=== PATIENT | female | born 1980 | race Caucasian/White ===

== ENCOUNTER 2020-11-04 15:53 | Outpatient (CLI) | payer OTHER, SELFPAY ==
--- NOTE | 2020-11-04 11:07 | DI.RAD_ITS ---
EXAM: XR KNEE LT 4V AP,LAT,JOSE DANIEL,PAT CLINICAL HISTORY: INJURY LT KNEE S80.912A,. TECHNIQUE: 2D digital imaging was performed. COMPARISON: No exams were available for comparison FINDINGS: BONES: No acute fracture is present. No bony destructive lesion is seen. JOINTS: The knee is normally aligned. Small joint effusion is present. SOFT TISSUE: Normal. IMPRESSION: No acute fracture or dislocation. Small joint effusion. If there is concern for internal derangemen t, an MRI should be considered for further evaluation. DATA REPOSITORY: RADIATION DOSE DELIVERED:
== END 2020-11-04 16:13 ==
PROVIDERS: Visit Provider Physician Assistant Medical
DX: M25.462 Effusion, left knee (principal); S89.82XA Other specified injuries of left lower leg, initial encounter
CPT/HCPCS: 73564

== ENCOUNTER 2021-01-28 13:41 | Outpatient (REF) | payer OTHER, SELFPAY ==
--- NOTE | 2021-01-28 13:15 | PAPFT_PTH ---
PATIENT: Dee Montgomery LOC: [facility] U#:[id number] AGE/SX: 40/F ROOM: RE01/28/[address]: Nayana Joiner : 1980 BED: DIS: 01/28/2021 SPEC #: [id number] RECD: 01/28/21 18:02 STATUS: BRIDGET HUNT #: [id number] GREGORY: 01/28/21 13:[address]: Nayana Joiner [facility]ology RECD BY: Anastasia Vivar Tissues: 1 - CX/ENDOCX FOR PAP SMEARS Procedures: PAP THIN PREP/UVM Screening HPV DNA PROBE Comments: [id number]
== END 2021-01-28 13:42 | disposition home or self-care (01) ==
LOC: NCHCN 13:41
PROVIDERS: Visit Provider Nurse Practitioner Family
DX: Z00.00 Encounter for general adult medical examination without abnormal findings (principal); Z12.4 Encounter for screening for malignant neoplasm of cervix; Z11.51 Encounter for screening for human papillomavirus (HPV)
CPT/HCPCS: 88142; 87624

== ENCOUNTER 2021-07-09 09:36 | Emergency (ER) | payer OTHER, SELFPAY ==
[2021-07-09] VITALS (47 sets, daily range): BP systolic 99–118; BP diastolic 61–75; PULSE 66–94; RESP 11–47; TEMP 36.6–36.8; O2SAT 97–100
--- NOTE | 2021-07-09 09:30 | RT.EKG_ITS ---
APPROVED REPORT Exam: Resting ECG Reason for Exam: sob,rapid heart rate Patient Location: E HR:79 bpm ECG Measurements Heart Rate 79 AXIS VA 126 P 58 QRSd 82 QRS 72 QT 335 T 45 QTc 383 Conclusion Sinus rhythm...normal P axis, V-rate 60- 99
--- NOTE | 2021-07-09 10:09 | ED.GENADUL_ITS ---
Discharge Plan Disposition Patient Disposition: HOME Condition: Stable Discharge Details Clinical Impression: SVT (supraventricular tachycardia) Primary Care Provider: Unknown,Unknown ED Provider: Nelson Arciniega Home Meds and New Rx's Prescriptions: Continued Stelara 90 mg/mL Syringe 90 mg SUBCUT RF: 0 Discharge Instructions Instructions: Supraventricular Tachycardia (ED) Additional Instructions: Work-up in the ER revealed that you occasionally went into SVT for short period of time. Work-up was otherwise unremarkable. Covid test is pending, we should quarantine until this test has come back negative, likely in the next 1-3 days. Wear Holter monitor as directed and follow the instructions given to you by respiratory therapy. Please contact your primary care provider to discuss your ER visit, ongoing symptoms, and need for outpatient reevaluation. I have also placed you on the cardiology list to help expedite outpatient care with our cardiology team for your SVT, I do recommend contacting your office in the next 48 hours to discuss your ER visit and set up outpatient reevaluation. Please watch for new or worsening symptoms and return to the ER for any concerns. Referrals: Skye Hilliard MD [ [facility] STAFF PHYSICIAN] - Discharge Data Discharge Date/Time-TO BE ENTERED AT DEPARTURE: 07/09/21 14:48 Medical Decision Making This is a 41-year-old female, past medical history of Crohn's disease, presenting to the ER for 3-4-day history of feeling like her heart is going fast, when this happened she feels lightheaded-dizzy but not like the room is spinning, and shortness of breath. She states that her daughter has a cold and is being tested for Covid, results are pending. Patient denies recent travel, fever, true chest pain, cough, abdominal pain, nausea, vomiting, pain or swelling or leg, she is not a smoker. Clinically she appears well, nontoxic, hemodynamically stable, pulse of 83, respirations 16, temp 36.6, O2 sat 100% on room air. She has no cardiac or pulmonary history. Given her presentation would like to initiate a cardiac work-up although low suspicion for ACS, plan, residential monitor, obtain a D-dimer, thyroid studies, and will reassess. Initial laboratory values do not reveal any obvious leukocytosis, minimal anemia, platelet count 282, sodium 142 potassium 4.3 creatinine 0.8 with a GFR greater than 60, magnesium 2.1 <0.05,tsh1.26, D-dimer negative at 368, will not pursue CTA of the chest. Covid pending. Chest x-ray is unremarkable. Patient was on the monitor for the first hour and a half of her ER visit and there is no evidence of any type of arrhythmia however then a brief. Of a few seconds of SVT were witnessed, this resulted spontaneously. Discussed the monitor findings, will place a request for a Holter monitor 48 hours, and refer her to cardiology, placing her on the cardiology list. Patient is agreeable to awaiting a repeat troponin and EKG. Repeat EKG performed at 1319, please see official report by Dr. Collado. Sinus rhythm, ventricular rate of 68, no STEMI. No arrhythmia Repeat troponin less than 0.05. Patient remains hemodynamically stable. Laboratory values are unremarkable for obvious emergent process, brief SVT noted on the monitor. Symptoms are likely secondary to her SVT. Discussed work-up and findings with patient in length, answered questions to the best of my ability. At this time she is comfortable discharge, Holter monitor has been placed, and she will contact the cardiology clinic tomorrow to help expedite outpatient follow-up. Strict discharge return precautions provided. This documentation was generated using [employer] dictation system, please disregard any oddities of phrase or misspellings. Medical Records Medical records reviewed: Yes I reviewed the patient's medical records. Imaging Data Radiologic Study: Attestation: I personally reviewed and interpreted this imaging study as follows: Imaging: X-Ray Radiologist's impression: Exam(s) XR PORTABLE CHEST AP EXAM: XR PORTABLE CHEST AP CLINICAL HISTORY: sob TECHNIQUE: 2D digital imaging was performed of the chest. Two images were obtained. An AP view was obtained. COMPARISON: No exams were available for comparison FINDINGS: MEDIASTINUM: Normal. HEART: Normal. PULMONARY VASCULATURE: Normal. LUNGS: Clear. PLEURAL SPACE: No pleural effusion or pneumothorax. BONE:Within normal limits for the patient's age. OTHER FINDINGS:Normal. IMPRESSION: No acute pulmonary findings. Lab Data Lab results reviewed: Yes I reviewed the patient's lab results. Labs: Laboratory Tests Range/Units 07/09/21 07/09/21 07/09/21 10:15 10:15 10:15 WBC (4.4-10.8) 10^3/uL RBC (3.93-5.22) 10^6/uL Hgb (11.2-15.7) g/dL Hct (36.0-46.0) % MCV (80-95) fL MCH (27.0-33.0) pg MCHC (32.0-36.0) % RDW (11.7-14.6) % Plt Count (130-400) 10^3/uL MPV (8.0-11.0) fL Immature Gran % Neutrophils % Lymphocytes % Monocytes % Eosinophils % Basophils % Nucleated RBC % % Absolute Neutrophils (1.2-6.7) 10^3/uL Absolute Lymphocytes (1.2-3.4) 10^3/uL Absolute Monocytes (0.1-0.8) 10^3/uL Absolute Eosinophils (0.0-0.7) 10^3/uL Absolute Basophils (0.0-0.2) 10^3/uL PT (9.3-11.0) sec 9.9 INR (0.9-1.1) 1.0 APTT (21.0-27.5) sec 22.4 D-Dimer (<500) ng/mlFEU 368 Sodium (136-145) mmol/L 142 Potassium (3.5-5.1) mmol/L 4.3 Chloride (98-107) mmol/L 109 H Carbon Dioxide (21.0-32.0) mmol/L 29.5 Anion Gap (3-11) mmol/L 3.5 BUN (7-18) mg/dL 10 Creatinine (0.55-1.02) mg/dL 0.8 Estimated GFR/1.73 m2 (mL/min/1.73m2) >= 60.00 Glucose (74-106) mg/dL 98 Calcium (8.5-10.1) mg/dL 9.0 Magnesium (1.8-2.4) mg/dL 2.1 Total Bilirubin (0.2-1.0) mg/dL 0.4 AST (15-37) U/L 16 ALT (14-59) U/L 22 Alkaline Phosphatase (46-116) U/L 46 Troponin I (<0.06) ng/mL < 0.05 Total Protein (6.4-8.2) g/dL 6.8 Albumin (3.4-5.0) g/dL 3.5 TSH (0.36-3.74) uIU/mL 1.26 Range/Units 07/09/21 07/09/21 10:15 13:35 WBC (4.4-10.8) 10^3/uL 5.84 RBC (3.93-5.22) 10^6/uL 3.84 L Hgb (11.2-15.7) g/dL 11.1 L Hct (36.0-46.0) % 34.6 L MCV (80-95) fL 90.1 MCH (27.0-33.0) pg 28.9 MCHC (32.0-36.0) % 32.1 RDW (11.7-14.6) % 14.1 Plt Count (130-400) 10^3/uL 282 MPV (8.0-11.0) fL 10.0 Immature Gran % 0.2 Neutrophils % 62.9 Lymphocytes % 27.9 Monocytes % 6.2 Eosinophils % 2.1 Basophils % 0.7 Nucleated RBC % % 0 Absolute Neutrophils (1.2-6.7) 10^3/uL 3.68 Absolute Lymphocytes (1.2-3.4) 10^3/uL 1.63 Absolute Monocytes (0.1-0.8) 10^3/uL 0.36 Absolute Eosinophils (0.0-0.7) 10^3/uL 0.12 Absolute Basophils (0.0-0.2) 10^3/uL 0.04 PT (9.3-11.0) sec INR (0.9-1.1) APTT (21.0-27.5) sec D-Dimer (<500) ng/mlFEU Sodium (136-145) mmol/L Potassium (3.5-5.1) mmol/L Chloride (98-107) mmol/L Carbon Dioxide (21.0-32.0) mmol/L Anion Gap (3-11) mmol/L BUN (7-18) mg/dL Creatinine (0.55-1.02) mg/dL Estimated GFR/1.73 m2 (mL/min/1.73m2) Glucose (74-106) mg/dL Calcium (8.5-10.1) mg/dL Magnesium (1.8-2.4) mg/dL Total Bilirubin (0.2-1.0) mg/dL AST (15-37) U/L ALT (14-59) U/L Alkaline Phosphatase (46-116) U/L Troponin I (<0.06) ng/mL < 0.05 Total Protein (6.4-8.2) g/dL Albumin (3.4-5.0) g/dL TSH (0.36-3.74) uIU/mL ECG Data Attestation: I personally reviewed and interpreted this ECG (s) as follows: Interpretation: Please see official report by Dr. Collado. Sinus rhythm, ventri cular rate of 79. No STEMI. HPI General Mode of arrival: ambulatory . Date/Time Provider Initiated Documentation: 07/09/21 09:39 . Limitations to Documentation: no limitations . Information obtained by: patient . HPI Narrative: This is a 41-year-old female, past medical history of Crohn's disease, presenting to the ER for 3-day history of feeling short of breath, fast and irregular heart rate, dizzy like she could pass out. She denies feeling like the room is spinning. Patient states that her symptoms have been fairly steady for the past 3 days. Nothing really makes them worse or better. She denies recent travel. She states that her daughter has a URI and is currently being tested for Covid. Patient denies fever, headache, visual changes, neck pain, chest pain, cough, abdominal pain, nausea, vomiting, pain or swelling in her legs, change with bowel or bladder function. She has not taken any [id number]-[id number] medications for her symptoms. Patient denies history of smoking. Related Data Home Medications Medication Instructions Recorded Confirmed Stelara 90 mg SUBCUT 07/09/21 Allergies Allergy/AdvReac Type Severity Reaction Status Date / Time No Known Allergies Allergy Unverified 07/09/21 09:53 General Stated Complaint: GenMedical EDMOND: 3 Review of Systems Constitutional Constitutional: Denies fatigue, Denies fever(s) and Denies headache(s) Eyes Eyes: Denies change in vision ENT Ears, Nose, Mouth, and Throat: Reports dizziness, Denies headache(s) and Denies neck pain Cardiovascular Cardiovascular: Denies chest pain and Reports dyspnea Respiratory Respiratory: Denies cough and Reports dyspnea Gastrointestinal Gastrointestinal: Denies abdominal pain, Denies nausea and Denies vomiting Genitourinary Genitourinary: Denies dysuria Musculoskeletal Musculoskeletal: Denies back pain, Denies neck pain, Denies numbness and Denies tingling Integumentary/Breasts Skin/Breast: Denies rash Neurologic Neurologic: Reports dizziness, Denies headache(s), Denies numbness and Denies tingling Endocrine Endocrine: Denies fatigue FOR[facility]LY [facility] Social History Smoking/Tobacco Use Status: Never Smoking risk assessment performed?: Yes Substance use type: does not use Exam Const General: cooperative, healthy appearing, comfortable and no acute distress Orientation: alert and awake HENMT Head: normal to inspection, normocephalic and atraumatic General nose exam: external nose normal Face and sinus: normal facial exam Mouth: moist mucous membranes Throat: posterior oropharynx normal Eyes General: appearance normal, both eyes and all related structures Conjunctivae: conjunctivae normal Neck Neck: normal visual inspection, full ROM, trachea midline and supple Resp Effort & Inspection: normal respiratory effort and able to speak in complete sentences Auscultation: clear to auscultation bilaterally Cardio Rate: regular rate Rhythm: regular rhythm GI Inspection: normal to inspection Palpation: soft, not firm, no guarding, no pulsatile masses and nontender Back/Spine/Pelvis Back: no CVA tenderness and No back tenderness Skin General skin exam: no rashes or lesions noted Neuro General: patient alert, patient awake, patient oriented x3, moves all extremities and no focal motor deficits Cognition: normal cognition Speech: speech normal Gait: normal gait Motor: muscle tone normal throughout Sensory Exam: no sensory deficits noted Extrem General: normal to inspection, full ROM, capillary refill normal, no pedal edema and no calf tenderness Psych Appearance: grossly normal Mental Status: mental status grossly normal Course Vital Signs Vital signs: Vital Signs Temperature 36.6 C 07/09/21 09:47 Pulse 83 07/09/21 09:47 Respiratory Rate 16 07/09/21 09:47 Blood Pressure 108/68 07/09/21 09:47 Pulse Oximetry 100 07/09/21 09:47 Temperature 36.6 C 07/09/21 09:47 Temperature Source Skin 07/09/21 09:47 Pulse 83 07/09/21 09:47 Respiratory Rate 21 10/06/21 09:55 Respiratory Effort 07/09/21 09:55 Respiratory Depth Normal 07/09/21 09:55 Respiratory Pattern Normal 07/09/21 09:55 Blood Pressure 108/68 07/09/21 09:47 Blood Pressure Position Sitting 07/09/21 09:47 Pulse Oximetry 100 07/09/21 09:47 Oxygen Delivery Method Room Air 07/09/21 09:47 Oxygen Flow Rate 0 07/09/21 09:47 Pain Level 0 07/09/21 09:47 PAWSS Have you Been Recently Intoxicated or Drunk Within the Last 30 days?: No Have you Ever Experienced Previous Episodes of Alcohol Withdrawal?: No Have you ever Experienced Withdrawal Seizures?: No Have you ever Experienced Delirium Tremens(DT)s?: No Have you ever undergone Alcohol Rehabilitation Treatment (i.e, inpt ot outpatient treatment programs)?: No Have you ever Experienced Blackouts?: No Have you ever Combined Alcohol with other Downers within the last 90 days?: No Have you ever Combined Alcohol with any other Substance of Abuse during the last 90 days?: No Positive Blood Alcohol level on Presentation? [PCS.BAL]: No Evidence of Increased Autonomic Activity (i.e. HR>120, tremor, sweating, agitation, nausea)?: No Result: 0
[2021-07-09 10:26] LABS: Abs Immature Grans 0.01 10^3/uL (0.0-0.06); Absolute Basophil Count 0.04 10^3/uL (0.0-0.2); Absolute Eosinophil Count 0.12 10^3/uL (0.0-0.7); Absolute Lymphocyte Count 1.63 10^3/uL (1.2-3.4); Absolute Monocyte Count 0.36 10^3/uL (0.1-0.8); Absolute Neutrophil Count 3.68 10^3/uL (1.2-6.7); Basophils % 0.7; Eosinophils % 2.1; HCT 34.6 % (36.0-46.0); HGB 11.1 g/dL (11.2-15.7); Immature Grans % 0.2; Lymphocytes % 27.9; MCH 28.9 pg (27.0-33.0); MCHC 32.1 % (32.0-36.0); MCV 90.1 fL (80-95); Monocytes % 6.2; Neutrophils % 62.9; Nucleated RBC 0 %; Platelet Count 282 10^3/uL (130-400); RBC 3.84 10^6/uL (3.93-5.22); RDW 14.1 % (11.7-14.6); RDW-SD 46.5 fL; WBC 5.84 10^3/uL (4.4-10.8)
[2021-07-09 10:41] LABS: PTT Activated 22.4 sec (21.0-27.5); Prothrombin Time 9.9 sec (9.3-11.0)
[2021-07-09 10:46] LABS: ALT 22 U/L (14-59); AST 16 U/L (15-37); Albumin 3.5 g/dL (3.4-5.0); Alkaline Phosphatase 46 U/L (46-116); Anion Gap 3.5 mmol/L (3-11); BUN 10 mg/dL (7-18); Bilirubin, Total 0.4 mg/dL (0.2-1.0); CO2 29.5 mmol/L (21.0-32.0); CREATININE 0.8 mg/dL (0.55-1.02); Chloride 109 mmol/L (98-107); Glucose 98 mg/dL (74-106); Magnesium 2.1 mg/dL (1.8-2.4); Potassium 4.3 mmol/L (3.5-5.1); Sodium 142 mmol/L (136-145); Total Protein 6.8 g/dL (6.4-8.2); Troponin I < 0.05 ng/mL (<0.06)
[2021-07-09 10:49] LABS: TSH (W/Ref FT4) 1.26 uIU/mL (0.36-3.74)
--- NOTE | 2021-07-09 11:00 | DI.RAD_ITS ---
Exam(s) XR PORTABLE CHEST AP EXAM: XR PORTABLE CHEST AP CLINICAL HISTORY: sob TECHNIQUE: 2D digital imaging was performed of the chest. Two images were obtained. An AP view was obtained. COMPARISON: No exams were available for comparison FINDINGS: MEDIASTINUM: Normal. HEART: Normal. PULMONARY VASCULATURE: Normal. LUNGS: Clear. PLEURAL SPACE: No pleural effusion or pneumothorax. BONE:Within normal limits for the patient's age. OTHER FINDINGS:Normal. IMPRESSION: No acute pulmonary findings. DATA REPOSITORY: RADIATION DOSE DELIVERED:
[2021-07-09 11:09] LABS: D-Dimer 368 ng/mlFEU (<500)
--- NOTE | 2021-07-09 13:00 | RT.EKG_ITS ---
APPROVED REPORT Exam: Resting ECG Reason for Exam: svt Patient Location: E HR:68 bpm ECG Measurements Heart Rate 68 AXIS WI 126 P 61 QRSd 82 QRS 70 QT 349 T 49 QTc 373 Conclusion Sinus rhythm...normal P axis, V-rate 60- 99
--- NOTE | 2021-07-09 13:25 | NUR.NOTE ---
Nursing Note: Referral to [facility] Cardiology for follow up of SVT in 1 week faxed. Jackie Vernon
[2021-07-09 13:59] LABS: Troponin I < 0.05 ng/mL (<0.06)
[2021-07-10 11:30] LABS: COVID-19 RT-PCR UVMMC Result Negative (Negative)
== END 2021-07-09 14:48 | disposition home or self-care (01) ==
PROVIDERS: Emergency Provider Physician Assistant
DX: I47.1 Supraventricular tachycardia (principal); Z20.822 Contact with and (suspected) exposure to COVID-19; R06.02 Shortness of breath
CPT/HCPCS: 36415; 80053; 93005; 99284; U0003; 71045; 83735; 84443; 84484; 85025; 85379; 85610; 85730; 93010; 93225

== ENCOUNTER 2021-07-09 12:45 | Outpatient (RCR) | payer OTHER, SELFPAY ==
--- NOTE | 2021-07-09 13:15 | HOLTER_ITS ---
APPROVED REPORT Conclusion This is a 48-hour Holter monitor ordered for supraventricular tachycardia Predominant rhythm was sinus with an average heart rate of 86. Minimum was 57, maximum 186 There were 2 isolated PVCs There were rare atrial premature beats. There were multiple self-limited runs of supraventricular ta chycardia There was no atrial fibrillation, no high-grade AV block, no pauses greater than 3 seconds
== END 2021-08-03 23:59 | disposition home or self-care (01) ==
LOC: RT 12:45
PROVIDERS: Visit Provider Physician Assistant
DX: I47.1 Supraventricular tachycardia (principal); I49.3 Ventricular premature depolarization
CPT/HCPCS: 93225; 93226

== ENCOUNTER 2021-08-14 09:23 | Outpatient (CLI) | payer OTHER, SELFPAY ==
--- NOTE | 2021-08-14 09:15 | RT.EKG_ITS ---
APPROVED REPORT Exam: Resting ECG Reason for Exam: SVT Patient Location: O HR:87 bpm ECG Measurements Heart Rate 87 AXIS NV 123 P 80 QRSd 73 QRS 82 QT 337 T 77 QTc 406 Conclusion Sinus rhythm...normal P axis, V-rate 50- 99 Normal Electrocardiogram
== END 2021-08-14 09:24 | disposition home or self-care (01) ==
LOC: DI.CARD 09:28
PROVIDERS: Visit Provider Internal Medicine Cardiovascular Disease
DX: I47.1 Supraventricular tachycardia (principal)
CPT/HCPCS: 93010

== ENCOUNTER 2021-09-18 01:44 | Outpatient (CLI) | payer OTHER, SELFPAY ==
--- NOTE | 2021-09-18 13:51 | DI.US_ITS ---
APPROVED REPORT EXAM: Comprehensive 2D, Doppler, and color-flow Echocardiogram Patient Location: [facility] Teacher: Dulce Rawls RDCS (AE) Indications: SVT Other Information Study Quality: Good Conclusion Normal left ventricular wall thickness and chamber size. Estimated ejection fraction is 60%. Wall m otion is normal Normal right ventricular size and systolic function Both atria are normal in size There is no structural or hemodynamically significant valvular disease Normal estimated right ventricular systolic pressure 19 mmHg Wall motion Left Ventricle The left ventricle is normal size. The left ventricular systolic function is normal. The left ventric ular ejection fraction is within the normal range. There is normal left ventricular wall thickness. T here is normal LV segmental wall motion. There is no ventricular septal defect visualized. Left ventr icular thrombus is present. LVEF is 60%. Right Ventricle The right ventricle is normal size. The right ventricular systolic function is normal. The RVSP is 19 .3_ mmHg. Atria The left atrium size is normal. The right atrium size is normal. The interatrial septum is intact wit h no evidence for an atrial septal defect. Aortic Valve The aortic valve is normal in structure. Aortic valve is trileaflet. There is no aortic valvular sten osis. No aortic regurgitation is present. Mitral Valve The mitral valve is normal in structure. No evidence of mitral valve stenosis. Trace mitral regurgita tion. Tricuspid Valve The tricuspid valve is normal in structure. There is no tricuspid valve stenosis. Trace to mild tricu spid regurgitation. Pulmonic Valve The pulmonary valve is normal in structure. There is no pulmonic valvular stenosis. There is no pulmo yesica valvular regurgitation. Great Vessels The aortic root is normal in size. The ascending aorta is normal in size. Aortic arch is normal in ca liber. IVC is normal in size and collapses >50% with inspiration. Pericardium There is no pericardial effusion. 2D Dimensions IVSD d PLAX 0.64 cm F: 0.6-1.0 LV Vol A2C d MOD 92.6 mL LVPW d PLAX 0.68 cm F: 0.6 - 1.0 LV Vol A4C d MOD 79.6 mL LVID d PLAX 4.55 cm F: 3.8 - 5.2 LA vol/ BSA A2C s A-L 21.3 mL/m2 LVDs 3.00 cm F: 2.2 - 3.5 LA vol/ BSA A4C s A-L 25.1 mL/m2 Ao Root d 2.72 cm F: 2.7 - 3.3 LA Vol/ BSA Biplane s A-L 24.5 mL/m2 RA Area A4C 11.06 cm2 LA Area A4C s MOD 15.78 cm2 RA Vol/ BSA A4C s A-L 16.6 mL/m2 LA Area A2C s MOD 13.72 cm2 Ao Asc Diam d 2.86 cm F: 2.3 - 3.1 LV EF A4C MOD 61.0 % LV EF Teichholz 62.8 % LV EF A2C MOD 59.8 % LVEF (Longoria's) 60.49 % F: 54 - 74 LV EF Biplane MOD 60.5 % LV Volume 68.71 mL F: 46 - 106 SV 52.15 mL LV Volume Index 40.89 mL/m2 F: 29 - 61 SV Index 30.97 mL/m2 LV Vol Biplane MOD 86.2 mL FS 33.80 % M-Mode TAPSE 2.01 cm (M/F) >1.7 LV Diastology MV E' medial 0.114 (>0.07 m/s) E/A Ratio 1.3 LV E/e MED 7.30 (<14) MV E Vmax 0.84 (0.4-1.3 m/s) MV E' lateral 0.145 (>0.1 m/s) MV A Vmax 0.65 (0.4-1.3 m/s) LV E/e LAT 5.75 (<14) MV E/A Ratio 1.24 MV E/E' medial 7.35 MV E/E' lateral 5.78 Aortic Valve LVOT Area 3.21 cm2 AoV Area Vmax 2.60 cm2 LVOT Vmax 1.10 m/s AoV Area/ BSA (Vmax) 1.55 cm2/m2 LVOT Mean Dorian. 0.68 m/s APOLINAR Mean Dorian. 2.33 cm2 LVOT Peak Grad 4.9 mmHg APOLINAR Mean Dorian. Index 1.39 cm2/m2 LVOT Mean Grad 2.2 mmHg LVOT VTI 0.236 m LVOT Diam s 2.00 cm AoV Vmax 1.36 m/s Velocity Ratio 0.80 AoV Mean Dorian. 0.93 m/s AoV Peak Grad 7.4 mmHg LVOT SV 75.80 mL AoV Mean Grad 3.9 mmHg AoV VTI 0.276 m AoV Area VTI 2.75 cm2 AoV Area/ BSA (VTI) 1.63 cm/m2 Mitral Valve MV DT 149 (160-240 msec) MV PHT 43 msec MV Area PHT 5.09 cm2 MV VTI 0.246 m MV Area VTI 3.09 (4.0-6.0 cm2) Pulmonary Valve PV Vmax 0.87 (0.5-1.5 m/s) RVOT Peak Gr. 2.03 mmHg PV Peak Grad 3.1 mmHg RVOT Mean Gr. 1.05 mmHg PV Mean Grad 1.8 mmHg RVOT VTI 0.133 m PV VTI 0.157 m RVOT Vmax 0.71 m/s Tricuspid Valve TR Peak Grad 16.3 mmHg TR Vmax 2.02 m/s RA Pressure 3.00 mmHg RVSP (TR) 19.3 mmHg
== END 2021-09-18 02:04 ==
PROVIDERS: PCP Nurse Practitioner Family; Visit Provider Internal Medicine Cardiovascular Disease
DX: I47.1 Supraventricular tachycardia (principal)
CPT/HCPCS: 93306

== ENCOUNTER 2022-02-03 18:15 | Outpatient (REF) | payer OTHER, SELFPAY ==
[2022-02-03 18:58] LABS: Abs Immature Grans 0.01 10^3/uL (0.0-0.06); Absolute Basophil Count 0.04 10^3/uL (0.0-0.2); Absolute Eosinophil Count 0.05 10^3/uL (0.0-0.7); Absolute Lymphocyte Count 1.55 10^3/uL (1.2-3.4); Absolute Neutrophil Count 3.57 10^3/uL (1.2-6.7); Basophils % 0.7; Eosinophils % 0.9; HCT 37.3 % (36.0-46.0); HGB 12.1 g/dL (11.2-15.7); Immature Grans % 0.2; Lymphocytes % 28.1; MCH 28.6 pg (27.0-33.0); MCHC 32.4 % (32.0-36.0); MCV 88 fL (80-95); MPV 11.2 fL (8.0-11.0); Monocytes % 5.4; Neutrophils % 64.7; Platelet Count 267 10^3/uL (130-400); RBC 4.23 10^6/uL (3.93-5.22); RDW 13.9 % (11.7-14.6); RDW-SD 44.3 fL; WBC 5.52 10^3/uL (4.4-10.8)
[2022-02-03 19:03] LABS: ESR 5 mm/hr (0-20)
[2022-02-03 19:14] LABS: ALT 22 U/L (14-59); AST 15 U/L (15-37); Albumin 4.2 g/dL (3.4-5.0); Alkaline Phosphatase 49 U/L (46-116); Anion Gap 11.5 mmol/L (3-11); BUN 18 mg/dL (7-18); Bilirubin, Total 0.5 mg/dL (0.2-1.0); CO2 23.5 mmol/L (21.0-32.0); CREATININE 0.8 mg/dL (0.55-1.02); Chloride 103 mmol/L (98-107); Glucose 100 mg/dL (74-106); Potassium 3.9 mmol/L (3.5-5.1); Sodium 138 mmol/L (136-145); Total Protein 7.3 g/dL (6.4-8.2)
[2022-02-03 19:39] LABS: C-Reactive Protein < 0.05 mg/dL (0.0-0.3)
[2022-02-05 02:05] LABS: Vitamin D 25 Total 56.8 ng/mL (30-100)
== END 2022-02-03 18:16 | disposition home or self-care (01) ==
LOC: NCHCN 18:15
PROVIDERS: PCP Nurse Practitioner Family; Visit Provider Nurse Practitioner Family
DX: Z00.00 Encounter for general adult medical examination without abnormal findings (principal); K50.90 Crohn's disease, unspecified, without complications
CPT/HCPCS: 80053; 82306; 85652; 85025; 86140

== ENCOUNTER 2022-07-21 15:55 | Outpatient (REF) | payer OTHER, SELFPAY ==
[2022-07-21 20:18] LABS: ESR 2 mm/hr (0-20)
[2022-07-21 20:19] LABS: Abs Immature Grans 0.02 10^3/uL (0.0-0.06); Absolute Basophil Count 0.05 10^3/uL (0.0-0.2); Absolute Eosinophil Count 0.03 10^3/uL (0.0-0.7); Absolute Lymphocyte Count 1.89 10^3/uL (1.2-3.4); Absolute Monocyte Count 0.35 10^3/uL (0.1-0.8); Absolute Neutrophil Count 4.09 10^3/uL (1.2-6.7); Basophils % 0.8; Eosinophils % 0.5; HCT 34.7 % (36.0-46.0); HGB 11.4 g/dL (11.2-15.7); Immature Grans % 0.3; Lymphocytes % 29.4; MCH 28.7 pg (27.0-33.0); MCHC 32.9 % (32.0-36.0); MCV 87 fL (80-95); MPV 10.1 fL (8.0-11.0); Monocytes % 5.4; Neutrophils % 63.6; Platelet Count 279 10^3/uL (130-400); RBC 3.97 10^6/uL (3.93-5.22); RDW 13.3 % (11.7-14.6); RDW-SD 42.5 fL; WBC 6.43 10^3/uL (4.4-10.8)
[2022-07-21 20:34] LABS: ALT 21 U/L (14-59); AST 19 U/L (15-37); Albumin 3.9 g/dL (3.4-5.0); Alkaline Phosphatase 55 U/L (46-116); Anion Gap 7.3 mmol/L (3-11); BUN 7 mg/dL (7-18); Bilirubin, Total 0.5 mg/dL (0.2-1.0); C-Reactive Protein 0.06 mg/dL (0.0-0.3); CO2 27.7 mmol/L (21.0-32.0); CREATININE 0.8 mg/dL (0.55-1.02); Calcium 9.3 mg/dL (8.5-10.1); Chloride 105 mmol/L (98-107); Estimated GFR 93.12 (mL/min/1.73m2); Glucose 91 mg/dL (74-106); Potassium 4.4 mmol/L (3.5-5.1); Sodium 140 mmol/L (136-145); TSH (W/Ref FT4) 1.01 uIU/mL (0.36-3.74)
== END 2022-07-21 15:56 | disposition home or self-care (01) ==
LOC: LBN 15:55
PROVIDERS: PCP Nurse Practitioner Family; Visit Provider Internal Medicine Rheumatology
DX: K50.919 Crohn's disease, unspecified, with unspecified complications (principal)
CPT/HCPCS: 80053; 82306; 85652; 84443; 85025; 86140

== ENCOUNTER 2022-11-09 09:49 | Outpatient (CLI) | payer OTHER, SELFPAY ==
--- NOTE | 2022-11-09 09:30 | DI.RAD_ITS ---
Exam(s) XR KNEE LT 4V+ EXAM: XR KNEE LT 4V+ CLINICAL HISTORY: LEFT KNEE PAIN. TECHNIQUE: 2D digital imaging was performed of the left knee. Three images were obtained. AP, late ral and PA tunnel views were obtained. COMPARISON: CR XR KNEE LT 4V AP,LAT,JOSE DANIEL,PAT from 11/04/2020 FINDINGS: BONES: No acute fracture is present. No bony destructive lesion is seen. JOINTS: The knee is normally aligned. No joint effusion is seen. SOFT TISSUE: Normal. IMPRESSION: Normal radiographs of the left knee. DATA REPOSITORY: RADIATION DOSE DELIVERED:
--- NOTE | 2022-11-09 09:45 | DI.RAD_ITS ---
Exam(s) XR KNEE RT 4V AP,LAT,JOSE DANIEL,PAT EXAM: XR KNEE RT 4V AP,LAT,JOSE DANIEL,PAT CLINICAL HISTORY: RIGHT KNEE PAIN. TECHNIQUE: 2D digital imaging was performed of the right knee. Four views obtained. Merchant, AP, la teral and PA tunnel views were obtained. COMPARISON: CR XR KNEE LT 4V AP,LAT,JOSE DANIEL,PAT from 11/04/2020 FINDINGS: BONES: No acute fracture is present. No bony destructive lesion is seen. JOINTS: The knee is normally aligned. No joint effusion is seen. SOFT TISSUE: Normal. IMPRESSION: Unremarkable radiographs of the right knee. DATA REPOSITORY: RADIATION DOSE DELIVERED:
== END 2022-11-09 09:50 | disposition home or self-care (01) ==
LOC: DIORS 09:50
PROVIDERS: PCP Nurse Practitioner Family; Referring Provider Nurse Practitioner Family; Visit Provider Student in an Organized Health Care Education/Training Program
DX: M25.561 Pain in right knee (principal); M25.562 Pain in left knee
CPT/HCPCS: 73564

== ENCOUNTER 2022-12-29 01:28 | Outpatient (CLI) | payer OTHER, SELFPAY ==
--- NOTE | 2022-12-29 07:45 | DI.MRI_ITS ---
Exam(s) MR LOWER JOINT LT WO EXAM: MR LOWER JOINT LT WO CLINICAL HISTORY: ? cartilage, meniscal abnormalities,internal derangement,patellofemoral syn. TECHNIQUE: Multiplanar multisequence MRI was performed. COMPARISON: CR XR KNEE LT 4V+ from 11/09/2022 FINDINGS: BONES: There is no fracture or contusion pattern. JOINTS: There is hyperintense signal seen in the medial articular cartilage in the patella. The sign al extends all the way to the bony surface where there is hyperintensity in the bone marrow. This wo uld be a grade 4 lesion. They are to go cartilage is otherwise well maintained. No effusion is pres ent. TENDONS: Extensor mechanism: Unremarkable. Medial retinaculum: Unremarkable. Lateral retinaculum: Unremarkable. Popliteus: Unremarkable. MUSCLES: Unremarkable. MENISCI: The medial meniscus is unremarkable. The lateral meniscus is unremarkable. SOFT TISSUES: There is a small popliteal cyst. LIGAMENTS: Anterior Cruciate: Unremarkable. Posterior Cruciate: Unremarkable. Medial Collateral:Unremarkable. Lateral Collateral: Unremarkable. OTHER: IMPRESSION: 1. 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 2. Small popliteal cyst. 3. No evidence of a meniscal or ligament tear. DATA REPOSITORY:
--- NOTE | 2022-12-29 07:45 | DI.MRI_ITS ---
Exam(s) MR LOWER JOINT RT WO EXAM: MR LOWER JOINT RT WO CLINICAL HISTORY: ? cartilage, meniscal abnormalitaies,internal derangement,patellofemoral. TECHNIQUE: Multiplanar multisequence MRI was performed. COMPARISON: CR XR KNEE RT 4V AP,LAT,JOSE DANIEL,PAT from 11/09/2022 FINDINGS: BONES: There is no fracture or contusion pattern. JOINTS: There is thinning of the articular cartilage and subchondral edema in the medial patellar fac et. The articular cartilage is otherwise well maintained. No effusion is present. TENDONS: Extensor mechanism: Unremarkable. Medial retinaculum: Unremarkable. Lateral retinaculum: Unremarkable. Popliteus: Unremarkable. MUSCLES: Unremarkable. MENISCI: The medial meniscus is unremarkable. The lateral meniscus is unremarkable. SOFT TISSUES: There is a tiny popliteal cyst. LIGAMENTS: Anterior Cruciate: There is mild hyperintense signal seen within the ACL suggesting a sprain. No carmen dence of a tear. Posterior Cruciate: Unremarkable. Medial Collateral:Unremarkable. Lateral Collateral: Unremarkable. OTHER: IMPRESSION: 1. Chondromalacia patella involving the medial patellar facet. 2. Findings suggesting ACL sprain. No evidence of a tear. 3. No evidence of a meniscal tear. DATA REPOSITORY:
== END 2022-12-29 01:48 ==
LOC: DI 01:29
PROVIDERS: PCP Nurse Practitioner Family; Visit Provider Student in an Organized Health Care Education/Training Program
DX: M22.2X1 Patellofemoral disorders, right knee (principal); M22.2X2 Patellofemoral disorders, left knee; M23.8X1 Other internal derangements of right knee; M23.8X2 Other internal derangements of left knee; M71.21 Synovial cyst of popliteal space [Baker], right knee; S83.511A Sprain of anterior cruciate ligament of right knee, initial encounter; M71.22 Synovial cyst of popliteal space [Baker], left knee
CPT/HCPCS: 73721

== ENCOUNTER 2023-02-22 02:04 | Outpatient (CLI) | payer OTHER, SELFPAY ==
[2023-02-22 09:13] LABS: HCT 37.7 % (36.0-46.0); HGB 12.6 g/dL (11.2-15.7); MCH 29.2 pg (27.0-33.0); MCHC 33.4 % (32.0-36.0); MCV 87 fL (80-95); MPV 9.4 fL (8.0-11.0); Platelet Count 275 10^3/uL (130-400); RBC 4.32 10^6/uL (3.93-5.22); RDW 12.9 % (11.7-14.6); RDW-SD 41.4 fL; WBC 4.91 10^3/uL (4.4-10.8)
[2023-02-22 09:34] LABS: Anion Gap 6.2 mmol/L (3-11); BUN 9 mg/dL (7-18); CO2 26.8 mmol/L (21.0-32.0); CREATININE 0.8 mg/dL (0.55-1.02); Calcium 9.2 mg/dL (8.5-10.1); Chloride 105 mmol/L (98-107); Estimated GFR 93.12 (mL/min/1.73m2); Glucose 108 mg/dL (74-106); Potassium 4.4 mmol/L (3.5-5.1); Sodium 138 mmol/L (136-145)
== END 2023-02-22 02:05 | disposition home or self-care (01) ==
LOC: LBO 02:04
PROVIDERS: PCP Nurse Practitioner Family; Visit Provider Student in an Organized Health Care Education/Training Program
DX: M25.561 Pain in right knee (principal); M25.562 Pain in left knee; M22.2X1 Patellofemoral disorders, right knee; M22.2X2 Patellofemoral disorders, left knee; Z01.818 Encounter for other preprocedural examination; Z01.812 Encounter for preprocedural laboratory examination
CPT/HCPCS: 36415; 80048; 85027

== ENCOUNTER 2023-03-02 06:07 | Day surgery (SDC) | payer OTHER, SELFPAY ==
[2023-03-02] VITALS (10 sets, daily range): BP systolic 90–124; BP diastolic 61–93; PULSE 60–83; RESP 14–25; TEMP 36.1–36.5; O2SAT 98–100; BMI 20.2
[2023-03-02] MEDS: Acetaminophen 500 MG TAB 1000 MG PO (06:41)
[2023-03-02] MEDS: Celecoxib 200 MG CAP 400 MG PO (06:41)
[2023-03-02] MEDS: Gabapentin 300 MG CAP PO (06:41)
[2023-03-02] MEDS: Lactated Ringers 1,000 ML 80 ML IV (06:57)
--- NOTE | 2023-03-02 07:11 | W.ANESPRE ---
General Info Date of Service Date Performed: 03/02/23 Height: 5 ft 7 in Weight: 58.6 kg Body Mass Index (BMI): 20.2 Surgical Procedure: Operation Date: 03/02/23 08:15 Proposed Procedure Side Surgeon p Knee Patellofemoral Replacement Bilateral Mark Andrade MD Meds Allergies and Home Medications Allergies Allergy/AdvReac Type Severity Reaction Status Date / Time No Known Allergies Allergy Unverified 03/02/23 06:20 Home Medication Medication Instructions Recorded ustekinumab 90 mg/mL subcutaneous 90 mg subcut DIRECTED 07/09/21 syringe (Stelara) cholecalciferol (vitamin D3) 125 125 mcg PO DAILY 08/14/21 mcg (5,000 unit) capsule celecoxib 200 mg capsule (Celebrex) 200 mg PO BID 02/22/23 dextroamphetamine-amphetamine ER 10 mg PO DAILY 02/22/23 10 mg 24hr capsule,extend release lisdexamfetamine 40 mg capsule 40 mg PO DAILY 02/22/23 (Vyvanse) polyethylene glycol 3350 17 17 g PO DAILY 02/22/23 gram/dose oral powder (Miralax) psyllium husk 3.4 gram/5.4 gram 1 tbsp PO BID 02/22/23 oral powder (Metamucil) Current Visit Medications: Current Medications Generic Name Dose Route Start Last Admin Trade Name Freq PRN Reason Stop Dose Admin Acetaminophen 1,000 mg 03/02/23 06:00 03/02/23 06:41 Acetaminophen 500 Mg Tab PO 03/02/23 18:00 1,000 mg PREOP BACILIO Administration Celecoxib 400 mg 03/02/23 06:00 03/02/23 06:41 Celecoxib 200 Mg Cap PO 03/02/23 18:00 400 mg PREOP BACILIO Administration Gabapentin 300 mg 03/02/23 06:00 03/02/23 06:41 Gabapentin 300 Mg Cap PO 03/02/23 18:00 300 mg PREOP BACILIO Administration Tranexamic Acid 1,000 mg/ 60 mls @ 360 mls/hr 03/02/23 06:00 Sodium Chloride IVPB 03/02/23 18:00 PREOP BACILIO Tranexamic Acid 1,000 mg/ 60 mls @ 360 mls/hr 03/02/23 06:00 Sodium Chloride IVPB 03/02/23 18:00 DIRECTED BACILIO Ringer's Solution 1,000 mls @ 80 mls/hr 03/02/23 06:00 03/02/23 06:57 IV 03/28/23 23:59 80 mls/hr INFUSION BACILIO Administration Cefazolin Sodium/Dextrose 2 gm in 50 mls @ 100 mls/hr 03/02/23 06:00 Ancef Duplex IVPB 03/02/23 16:00 PREOP BACILIO IV Miscellaneous Supplies 1 each 03/02/23 06:00 Iv Access IV 03/28/23 23:59 DIRECTED BACILIO Sodium Chloride 0 ml 03/02/23 06:00 Normal Saline Flush 10 Ml Syr IV 03/28/23 23:59 PRN PRN Sodium Chloride 0 ml 03/02/23 06:00 Normal Saline 10 Ml Vial IJ 03/28/23 23:59 DIRECTED PRN Sterile Water 0 ml 03/02/23 06:00 Water,Injection,Sterile 10 Ml Vial IJ 03/28/23 23:59 DIRECTED PRN PFSH Active Problems Active Problems: Problem Status Onset Code SVT (supraventricular tachycardia) I47.1 Patellofemoral syndrome of both knees M22.2X1, M22.2X2 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 Medical History Medical History ADHD Crohn's disease Surgical History Surgical History (Updated 03/02/23 @ 07:07 by Sabi Moore) History of colonoscopy Tobacco Smoking/Tobacco Use Status: Never Alcohol Alcohol Intake: current Alcohol intake frequency: a few times a month Substance Use Substance use: Never Substance use type: does not use Vital Signs and Lab Results Vital Signs Most Recent Vital Signs in EMR: Most Recent Vital Signs Temp Pulse Resp BP Pulse Ox 36.4 C L 83 16 103/77 100 03/02/23 06:20 03/02/23 06:20 03/02/23 06:20 03/02/23 06:20 03/02/23 06:20 Point of Care Results Point of Care Results: POC- Test(urine) Negative 03/02/23 06:43 Lab Results Blood Type / Crossmatch: No Data to Display Complete Blood Count: White Blood Count 4.91 10^3/uL (4.4-10.8) 02/22/23 09:08 Red Blood Count 4.32 10^6/uL (3.93-5.22) 02/22/23 09:08 Hemoglobin 12.6 g/dL (11.2-15.7) 02/22/23 09:08 Hematocrit 37.7 % (36.0-46.0) 02/22/23 09:08 Platelet Count 275 10^3/uL (130-400) 02/22/23 09:08 Complete Metabolic Panel: Sodium 138 mmol/L (136-145) 02/22/23 09:08 Potassium 4.4 mmol/L (3.5-5.1) 02/22/23 09:08 Chloride 105 mmol/L (98-107) 02/22/23 09:08 Carbon Dioxide 26.8 mmol/L (21.0-32.0) 02/22/23 09:08 BUN 9 mg/dL (7-18) 02/22/23 09:08 Creatinine 0.8 mg/dL (0.55-1.02) 02/22/23 09:08 Est GFR (CKD-EPI 2020) 93.12 (mL/min/1.73m2) 02/22/23 09:08 Calcium 9.2 mg/dL (8.5-10.1) 02/22/23 09:08 Glucose 108 mg/dL (74-106) H 02/22/23 09:08 Liver Function Panel: No Data to Display Coagulation Panel: No Data to Display Cardiac Panel: No Data to Display Arterial Blood Gas: No Data to Display Venous Blood Gas: No Data to Display Pancreas Panel: No Data to Display Thyroid Panel: No Data to Display Infectious Disease: No Data to Display Blood Cultures: No Data to Display Toxicology Panel: No Data to Display Panel: No Data to Display Anesthesia Assessment and Plan Anesthesia History Personal History: No History of Anesthesia Complications Family History: No Family History of Anesthesia Complications Exercise Tolerance Exercise Tolerance: Metabolic Equivalents>4 Pertinent Negatives Pertinent Negatives: No Symptoms of GERD, No Major Cardiovascular Symptoms or Complaints, No Major Pulmonary Symptoms or Complaints and No History of CVA/TIA Cardiac & Pulmonary Exam Cardiac Exam: Normal S1/S2 Heart Sounds Pulmonary Exam: Clear Bilateral Breath Sounds Implantable Cardiac Device Does patient have a Pacemaker or an ICD?: No Airway Exam Known Difficult Airway: No Mallampati Class: 1 Mouth Opening: Normal (> 3cm) Thyromental Distance: Greater than 3 cm Neck Range of Motion: Full ROM Neck Circumference: Normal Teeth Condition: Normal Dentition ASA Classification ASA Score: ASA 2 Emergency Case?: No NPO Status NPO Status: NPO Clears >2 hours, Solids >8 hours Status Status: Negative HCG Anesthesia Plan Resuscitation Status: Full Code Anesthesia Technique: Spinal Anesthesia Airway Planned: Natural Airway Monitors Used: Standard Monitors
[2023-03-02] MEDS: ceFAZolin 2 GM/50 ML BAG IVPB (07:37)
--- NOTE | 2023-03-02 08:00 | W.ANESNERVE ---
Nerve Block Single Injection Procedure Date and Time Date Performed: 03/02/23 Procedure Start: 07:18 Location Where Procedure Performed Procedure Location: Day Surgery Unit Reason Performed: Postoperative Analgesia Requesting Provider: Mark Andrade Timeout Performed Timeout Performed: Yes Monitoring Used ECG, Blood Pressure, SpO2 and See EMR for corresponding vital signs Sterility Sterility: Hand Hygiene, Surgical Cap, Surgical Mask, Sterile Gloves, Sterile Drape/Sheet and Chlorhexidine Sedation Given During Procedure Sedation Given (Indicate Dose Given): Versed IV Dose:: 2 mg Patient Mental Status Patient Mental Status: Sedate with meaningful communication Nerve Block 1st Nerve Block: Laterality: Bilateral Block Type: Adductor Canal Ultrasound Image Saved?: Yes Needle / Catheter Used: 100mm SonoPlex II Local Anesthetic Bolus (Indicate Dose Given): Lidocaine used for local infiltration of skin, Injected in 3-5ml increments after negative blood aspiration, Half of Total block solution given into each side and Bupivacaine 0.25% Dose:: 20 ml Additives (Indicate Dose Given): None Ultrasound: Sterile probe cover and gel used Nerve Stimulator: Not Used Paresthesia: Right (needle repositioned prior to injection) Paresthesia Duration: Transient Procedure Tolerated: No Complications and Patient tolerated well Procedure Outcome: Successful Performed By: Leonie Badillo
--- NOTE | 2023-03-02 10:48 | W.PM.DS.N ---
Date of service: 03/02/23 Time of Service: 10:48 DS: Diagnosis Discharge Diagnosis (1) Patellofemoral syndrome of both knees: Status: Acute (2) Patellofemoral arthrosis: Status: Acute (3) Chondromalacia patellae: Status: Acute Discharge Plan Disposition Patient Disposition: Home Condition: Good Discharge Details Reason For Visit: Bilateral patellofemoral DJD Attending Provider: Mark Andrade Primary Care Provider: Nayana Joiner Home Meds and New Rx's Prescriptions: New acetaminophen 500 mg tablet 1,000 mg PO Q8H PRN Qty: 90 0RF Rx Instructions: Take two tablets up to every 8 hours as needed for pain aspirin 81 mg tablet,delayed release (DR/EC) 81 mg PO BID 30 Days Qty: 60 0RF celecoxib [Celebrex] 200 mg capsule 200 mg PO BID PRNQty: 60 0RF Rx Instructions: Take one tablet twice daily for pain and inflammation docusate sodium [Colace] 100 mg capsule 100 mg PO BID Qty: 30 0RF pantoprazole 40 mg tablet,delayed release (DR/EC) 40 mg PO DAILY 14 Days Qty: 14 0RF dexamethasone 4 mg tablet 4 mg PO DAILY Qty: 2 0RF Rx Instructions: Take one tablet once daily for two days gabapentin 300 mg capsule 300 mg PO QHS Qty: 14 0RF Rx Instructions: Take one tablet at bedtime hydrocodone-acetaminophen 7.5-325 mg tablet 1 tab PO Q4H PRNQty: 14 0RF Continued cholecalciferol (vitamin D3) 125 mcg (5,000 unit) capsule 125 mcg PO DAILY Vyvanse 40 mg capsule 40 mg PO DAILY dextroamphetamine-amphetamine 10 mg capsule,extended release 24hr 10 mg PO DAILY polyethylene glycol 3350 [Miralax] 17 gram/dose powder 17 g PO DAILY Metamucil 3.4 gram/5.4 gram powder 1 tbsp PO BID Rx Instructions: mix into at least 8 oz of water or juice before administering Held Stelara 90 mg/mL Syringe 90 mg SUBCUT DIRECTED Hold Instructions: Resume on 03/16/23. Hold for 2 weeks following surgery Discontinued celecoxib [Celebrex] 200 mg capsule 200 mg PO BID Discharge Instructions Additional Instructions: Patellofemoral Replacements Discharge Instructions Activity: The most important activity is to walk and to work on gentle motion (both flexion and extension). You should try to take short walks a few times a day. It is important that when resting you work on keeping the knee straight. Avoid putting a pillow behind the knee as this will encourage flexion. Work on range of motion exercises as provided by Physical Therapy. - Start outpatient physical therapy within 2 weeks. - You should wear the HERBIE hose on both legs for 2 weeks. You may remove these at night. You may also use any compression sock in place of the HERBIE hose. - Utilize [employer] to review exercises, see videos on exercises and obtain basic information pertaining to your surgery and your recovery. Dressing: Remove the Stu wrap by 2 days after your surgery and put on the HERBIE stocking given to you from the hospital. Keep the surgical dressing (underneath the STU wrap) in place for at least one week. After the first week it may be removed and replaced with light gauze and tape or nothing. The wound and dressing may get wet after 3 days but avoid soaking the dressing or otherwise it will need to be changed. Many people prefer covering the dressing with cling wrap (saran wrap) to minimize it from getting soaked. If it gets wet, just pat dry. If it starts to peel off then it will need to be changed. Medications: - You should take Tylenol and anti-inflammatory Celebrex as your primary pain control medications. If the Celebrex is too expensive or not covered, please call the office for another alternative (Advil/Ibuprofen or Naproxen/Aleve) - You have been prescribed a stronger pain medication Hydrocodone for breakthrough pain, take as needed as prescribed. - You have also been prescribed a stomach acid reduction agent Pantoprozole to help reduce stomach acid and reflux. - You have been prescribed Gabapentin to take at night for restlessness and nerve pain. - You will be taking Aspirin 81mg twice a day for DVT prevention unless instructed otherwise. - You have also been prescribed Decadron to take to control post-operative nausea and pain. You will start this tomorrow. - If you have constipation you should take Colace (which has been prescribed) or Miralax (which is available [id number]). It takes most people 3-4 days to have a bowel movement. Follow-up: 2 weeks If you have any acute concerns or questions, please do not hesitate to contact the office at [phone]. You may contact Dr. Andrade with any questions after hours through the hospital at [phone] or on his cell phone at [phone]. Stand Alone Forms: Anesthesia Discharge Inst., Fayes.Nerve Block Instructions Referrals: Mark Andrade MD [ [facility] STAFF PHYSICIAN] - 03/15/23 10:45 am Equipment/Supplies: Walker Activity:: Elevate Remove Dressings/Wound Care:: Do Not Remove Shower/Bathe:: Cover Diet:: As Tolerated Discharge Orders Discharge Orders: Discharge Order (Routine); Ordered 03/02/23 Ordered By: Mark Andrade DS: Summary Time Spent with Patient providing and/or coordinating discharge services: Less than 30 minutes Status at Discharge Functional status at discharge: uses cane/walker Overall status at discharge: patient is progressing back to baseline Mental Status: mental status grossly normal Speech and Movement: speech and movement normal Mood: congruent mood Affect: normal affect Exam Psych Mental Status: mental status grossly normal Speech and Movement: speech and movement normal Mood: congruent mood Affect: normal affect DS: Data Vitals/I&O Vitals and I&O: Vital Signs Temperature 97.5 F L 03/02/23 06:20 Pulse 83 03/02/23 06:20 Pulse Rhythm Regular 03/02/23 06:20 Respiratory Rate 16 03/02/23 06:20 Respiratory Depth Normal 03/02/23 06:20 Blood Pressure 103/77 03/02/23 06:20 Pulse Oximetry 100 03/02/23 06:20 Oxygen Delivery Method Room Air 03/02/23 06:20 Oxygen Flow Rate 0 03/02/23 06:20 Pain Level 5 03/02/23 06:20 Intake & Output 03/01/23 03/01/23 03/02/23 11:59 23:59 11:59 Weight 129 lb 3.054 oz PFSH All Active Problems SVT (supraventricular tachycardia) (Chronic) Patellofemoral syndrome of both knees (Acute) Patellofemoral arthrosis (Acute) Bilateral Chondromalacia patellae (Acute) Medical History ADHD Crohn's disease Surgical History (Updated 03/02/23 @ 07:07 by Sabi Moore) History of colonoscopy Social History Smoking/Tobacco Use Status: Never Smoking risk assessment performed?: Yes Alcohol Intake: current Alcohol Intake frequency: a few times a month Drug use: Never Substance use type: does not use Time Spent with Patient Time Spent with Patient: <45 minutes Time was spent: obtaining and/or reviewing separately otained hiistory, ordering medications,tests, procedures and counseling the patient
--- NOTE | 2023-03-02 11:06 | W.ANESPOSTOP ---
Postoperative Evaluation Date, Time and Location Date Performed: 03/02/23 Time Performed: 10:35 Patient Location: Day Surgery Unit Vital Signs Most Recent Imported Vital Signs: Most Recent Vital Signs Temp Pulse Resp BP Pulse Ox 36.1 C L 65 16 100/68 100 03/02/23 10:54 03/02/23 10:54 03/02/23 10:54 03/02/23 10:54 03/02/23 10:54 Pain Score Most Recent Pain Score: Most Recent Pain Score Pain Level 0 03/02/23 10:54 Assessment Mental Status: Awake (Alert & Oriented to Patient Baseline) Airway and Respiratory Function: Patent airway with normal (patient baseline) respiratory exam Cardiovascular Function: Hemodynamically Stable Hydration Status: Adequately Hydrated Nausea & Vomiting: No Nausea or Vomiting Pain: Pt. Denies Any Pain Peripheral Nerve Block: Regional nerve block not resolved at time of post operative discharge
--- NOTE | 2023-03-02 11:08 | IN_ITS ---
PT Notes Visit Reasons: Bilateral patellofemoral DJD Physical Therapy Day Surgery Initial Evaluation Date: 03/02/23 Referring Doctor: Jyoti Conti/Mark Andrade MD PT Orders: PT CONSULT: s/p ortho surgery Precautions: Fall. Standard. WBAT with AD Patient Profile/Admitting Diagnosis: Dee is a 42 yo female with bilateral patellarfemoral degenerative joint disease. She is status post bilateral patellofemoral joint replacement on postoperative day 0. PMHX: See EMR Social History/Home Situation: Lives in 2 level home, but set up to sleep on main level. Has 5 MIGUEL ANGEL with bilateral rails. Equipment Owned/DME: None Subjective: Cleared by nursing to see patient and patient is agreeable to PT. Patient is resting in bed at time of consult. Objective: General Observation: Alert and relaxed Mental Status: A&O x3 Pain: 3/10 bilateral knees ROM: Right Lower Extremity: Hip flexion WFL. Hip abduction WFL. Knee flexion WFL. Knee extension WFL. Ankle dorsiflexion WFL. Ankle plantarflexion WFL. Left Lower Extremity: Hip flexion WFL. Hip abduction WFL. Knee flexion WFL. Knee extension WFL. Ankle dorsiflexion WFL. Ankle plantarflexion WFL. Strength: Right Lower Extremity: Hip flexors 5/5. Knee flexors 3/5. Knee extensors 3/5. Ankle dorsiflexors 5/5. Ankle plantarflexors 5/5. Left Lower Extremity: Hip flexors 5/5. Knee flexors 3/5. Knee extensors 3/5. Ankle dorsiflexors 5/5. Ankle plantarflexors 5/5. Sensation: Intact as to pain and pressure on bilateral lower extremities. Bed Mobility/Transfers: Supine to sit: Independent Sit to supine: Independent Sit to stand: CGA - cues to use solid surface to push off Stand to sit: CGA - cues to use solid surface for control Gait: Ambulated 15 ft x2 with FWW (keeps legs stiff, shortened stride) Stairs: 4 step x6, 6 x 2 with bilateral rails and SBA Balance: Static Sitting: Normal Dynamic Sitting: Normal Static Standing: Good Dynamic Standing: Fair Therapeutic Activity (12235) dynamic movement and functional strengthening to improve physical performance: 15 minutes Stair ambulation with instruction on alternating steps Instructed in ankle pumps, quad sets, glut activation Discussed focusing on light ROM and swelling/pain management Addressed all patient questions Special Tests: Mobility Limitations Standardized Measure [facility] AM-PAC 6 clicks Basic Mobility Inpatient Short Form: Raw Score: 23?? CMS Score: 11.2% Informed Consent/Education: Patient instructed in purpose of PT consult and plan of care. Assessment: Dee demonstrates functional mobility decline requiring the use of front- wheeled walker for all mobility ADL performance to maximize independence and reduce fall risk. Patient presents with clinical signs and symptoms consistent with current/admitting diagnoses that have resulted to mobility limitations, gait instability, generalized weakness, and impairment of motor control as demonstrated by the following impairment level findings: 1. Decreased strength to bilateral knee major muscle groups 2. Impaired standing balance 3. Impaired activity tolerance 4. Limitation of joint range of motion in bilateral knees Impairments are contributing to the following functional limitations: 1.? Inability to safely ambulate without assistive device 2.? Increase completion time for mobility ADL performance 3.? Increased fall risk 4. Inability to safely ambulate independently on stairs Patient is assessed as a low complexity based on the following: History: 42 year old female with impairment level findings, functional limitations, and past medical history as indicated above Examination: Demonstrable impairment in strength, balance, and mobility level with underlying impairments and functional limitations as documented above Presentation: Stable Decision Making: low complexity Plan of Care/Treatment Plan: PT evaluation only for functional mobility training using recommended AD and for HEP instruction. DISCHARGE RECOMMENDATIONS: Home with outpatient PT when medically cleared by orthopedic surgeon.? Will benefit from outpatient PT services in order to facilitate return to independent community ambulation and ADL performance without an assistive device. TREATMENT CODE/TIME: 11:25-11:50 (25 minutes), [id number], [id number] Thank you for the opportunity to participate in the care of this patient. Trina Juarez, PT, DPT, OCS [facility] [place], [place]
--- NOTE | 2023-03-02 16:28 | W.PM.OP ---
Date of service: 03/02/23 Time of Service: 09:20 Operative Note Operative Note DATE OF PROCEDURE: 03/02/23 PRE-OP DIAGNOSIS: Bilateral Patellar Chondromalacia POST-OP DIAGNOSIS: same PROCEDURE: Bilateral Patlleofemoral Replacement SURGEON: Mark Andrade CODING QUALITY ANALYST: Jyoti Conti ANESTHESIA TYPE: Spinal Refer to Anesthesia Record ESTIMATED BLOOD LOSS: 50 PATHOLOGY: none sent TOURNIQUET TIME: 0 COMPLICATIONS: None Patient was transported to: PACU Patient's condition: stable Implants: RIGHT: 1. Arthrosurface Wave Trochlear Component, 10x5mm 2. Depuy Attune Patellar Button, 32mm LEFT: 1. Arthrosurface Wave Trochlear Component, 11.5x5mm 2. Depuy Attune Patellar Button, 32mm Indications: Dee is a 42 year old female who has had symptoms of bilateral anterior knee pain with severe patellar chondromalacia. Conservative measures have been exhausted yet pain and dysfunction persisted. Please see office notes for complete details. Given the continued symptoms, I recommended bilateral patellofemoral replacement. I reviewed the risks of the procedure to include bleeding, infection, pain, stiffness, worsening medial or lateral compartment arthritis, patellar instability, loosening, fracture, clot. Despite these risks, Dee elected to proceed. Findings: There was complete loss of cartilage over the medial facet of the patella on the right with a smaller lesion on the left but with loose, unstable cartilage. Procedure Description: Dee was greeted in the preoperative holding area where the correct side was identified and marked. The consent was reviewed with the patient and signed. The history and physical was updated. All questions were answered. Preoperative mediacations were administered: Acetaminophen 1000mg, Celebrex 400mg, and Gabapentin 300mg. A bilateral adductor canal block was then administered by the anesthesia team in the DSU. She was taken back to the operating room. A spinal anesthestic was then administered. The patient was placed into the supine position on the operating room table. Posts were placed for positioning during the procedure. All bony prominences were well padded. Prophylactic antibiotics in the form of Cefazolin were administered. 1g of Tranxemic Acid was given intravenously within 30 minutes of incision. Both legs were then prepped with Chloraprep and draped in a standard fashion with impervious stockinette and extremity drape. A second prep with Chloraprep was performed prior to placing Ioband on the right knee and the left knee was kept covered until time for incision. A timeout to confirm correct identity, side and site, procedure, allergies, anesthesia, and medical concerns was performed. RIGHT KNEE With the knee in some flexion, a midline incision was made overlying the knee. Full thickness skin flaps were raised once the extensor mechanism was encountered. These were raised medially and laterally. Any bleeding was controlled with electrocautery. Once the extensor mechanism was fully exposed, a medial parapatellar arthrotomy was performed in a flexed position. All bleeding from the arthrotomy and the geniculate arteries was coagulated. The menisci and intrameniscal ligament was preserved. The medial patella had complete loss of cartilage. The knee was held in extension and the patella was measured as 26 mm. Using the patellar clamp and cut guide, this was resected to a flat surface with at least 13mm of thickness remaining. The size 32 patella fit the best. This was oriented and then clamped into position. The lugs were drilled. The Arthrosurface patellofemoral trial was then placed in the appropriate position and a single guidewire was placed through the center of this device. This was confirmed to be in appropriate location using the targeting arm. The trochlea was then sized in both directions corresponding to an 10x5. The initial reamer was then placed and taken down to appropriate depth. The reaming and drill guide was then placed within this recess and secured with pins. Using both the centralized reamer and the edge reamer, the trochlear recess was prepared. The guide was removed and the edges were curetted for completeness. The central hole was then prepared with a drill and a tap. The outer surface screw was then inserted to the premeasured depth. The 10x5mm patellofemoral Wave trochlear component by Arthrosurface was then malleted into position sitting flush over the lateral and proximal lateral aspect. High viscosity cement was prepared on the back table under vacuum preparation. When ready, cement was manually impacted into the cut surface of the patella and the patellar button was clamped into position and held. During this process attention was turned to the gutters of the knee and for all interfaces for any excess cement. While the cement was hardening, the knee was irrigated with Surgiphor betadine solution. It was allowed to sit in the knee for 3 minutes. After the cement had finally cured, approximately 15min, the clamp was removed from the patella and the knee was taken through range of motion. The capsule was then reapproximated with a No. 1 Vicryl followed by a #2 Stratafix. Deep tissues were then reapproximated with 0 Vicryl and 2-0 Vicryl. The skin was closed with a running 3-0 Monocryl in a subcuticular fashion. This was reinforced with skin glue. The second dosing of 1g TXA was started. A Mepilex silver dressing was applied. LEFT KNEE Turning attention to the left knee, the stockinette was opened and the knee was prepped with Chloraprep. An ioband was placed over the knee. Then, a midline incision was made overlying the knee with the knee in flexion. Full thickness skin flaps were raised once the extensor mechanism was encountered. These were raised medially and laterally. Any bleeding was controlled with electrocautery. Once the extensor mechanism was fully exposed, a medial parapatellar arthrotomy was performed in a flexed position. All bleeding from the arthrotomy and the geniculate arteries was coagulated. The menisci and intrameniscal ligament was preserved. There was a full thickness defect of the cartilage of the medial patella with loose chondral flaps. The knee was held in extension and the patella was measured as 26 mm. Using the patellar clamp and cut guide, this was resected to a flat surface with at least 13mm of thickness remaining. The size 32 patella fit the best. This was oriented and then clamped into position. The lugs were drilled. The Arthrosurface patellofemoral trial was then placed in the appropriate position and a single guidewire was placed through the center of this device. This was confirmed to be in appropriate location using the targeting arm. The trochlea was then sized in both directions corresponding to an 11.5x5. The initial reamer was then placed and taken down to appropriate depth. The reaming and drill guide was then placed within this recess and secured with pins. Using both the centralized reamer and the edge reamer, the trochlear recess was prepared. The guide was removed and the edges were curetted for completeness. The central hole was then prepared with a drill and a tap. The outer surface screw was then inserted to the premeasured depth. The 11.5x5mm patellofemoral Wave trochlear component by Arthrosurface was then malleted into position sitting flush over the lateral and proximal lateral aspect. High viscosity cement was prepared on the back table under vacuum preparation. When ready, cement was manually impacted into the cut surface of the patella and the patellar button was clamped into position and held. During this process attention was turned to the gutters of the knee and for all interfaces for any excess cement. While the cement was hardening, the knee was irrigated with Irrisept chlorhexadine solution. It was allowed to sit in the knee for 3 minutes. After the cement had finally cured, approximately 15min, the clamp was removed from the patella and the knee was taken through range of motion. The capsule was then reapproximated with a No. 1 Vicryl. The second dosing of 1g TXA was started. Deep tissues were then reapproximated with 0 Vicryl and 2-0 Vicryl. The skin was closed with a running 3-0 Monocryl in a subcuticular fashion. This was reinforced with skin glue. A Mepilex silver dressing was applied along with a [id number] GABRIEL wrap. An GABRIEL wrap was also applied to the right knee. A CryoCuff was applied to both knees. Dee was transferred to the hospital bed without difficulty an suffering no apparent complication. Dee has a good prognosis. Physical therapy will start today and without restrictions, weight-bearing as tolerated. Aspirin 81mg BID will be used for DVT prophylaxis.
== END 2023-03-02 13:00 | disposition home or self-care (01) ==
PROVIDERS: PCP Nurse Practitioner Family; Visit Provider Student in an Organized Health Care Education/Training Program
PROC: (CPT 27437; principal; 2023-03-02 07:45)
DX: M22.2X1 Patellofemoral disorders, right knee (principal); M22.42 Chondromalacia patellae, left knee; M22.41 Chondromalacia patellae, right knee
CPT/HCPCS: 27438; 76942; 81025; 97161; 97530; J0690; J1100; J2001; J2250; J2405

== ENCOUNTER 2023-03-15 11:06 | Outpatient (CLI) | payer OTHER, SELFPAY ==
--- NOTE | 2023-03-15 10:45 | DI.RAD_ITS ---
Exam(s) XR KNEE RT 3V AP,LAT,JOSE DANIEL EXAM: XR KNEE RT 3V AP,LAT,JOSE DANIEL CLINICAL HISTORY: 1ST POST OP S/P R PF REPLACEMENT. TECHNIQUE: 2D digital imaging was performed. COMPARISON: CR XR KNEE LT 4V+ from 11/09/2022 CR XR KNEE RT 4V AP,LAT,JOSE DANIEL,PAT from 11/09/2022 FINDINGS: 3 views Patellofemoral compartment prosthesis noted. No fracture or loosening related to this component. There has been patellar resurfacing. On the merchant's view there is linear lucency parallel to the posterior surface of the patella measuring 2.5 cm length by 0 point 2 cm wide. This is only seen on the merchant's view. IMPRESSION: DATA REPOSITORY: RADIATION DOSE DELIVERED:
--- NOTE | 2023-03-15 10:45 | DI.RAD_ITS ---
Exam(s) XR KNEE LT 3V AP,LAT,JOSE DANIEL EXAM: XR KNEE LT 3V AP,LAT,JOSE DANIEL CLINICAL HISTORY: 1ST POST OP S/P L PF REPLACEMENT. TECHNIQUE: 2D digital imaging was performed. COMPARISON: CR XR KNEE RT 3V AP,LAT,JOSE DANIEL from 03/15/2023 FINDINGS: 3 views Patellofemoral compartment prosthesis appears satisfactory. No fracture or loosening. Patellar resu rfacing noted. This appears satisfactory. IMPRESSION: Satisfactory appearance. DATA REPOSITORY: RADIATION DOSE DELIVERED:
== END 2023-03-15 11:07 | disposition home or self-care (01) ==
LOC: DIORS 11:07
PROVIDERS: PCP Nurse Practitioner Family; Referring Provider Nurse Practitioner Family; Visit Provider Student in an Organized Health Care Education/Training Program
DX: Z96.659 Presence of unspecified artificial knee joint (principal); Z47.1 Aftercare following joint replacement surgery
CPT/HCPCS: 73562

== ENCOUNTER 2024-01-18 16:04 | Outpatient (REF) | payer OTHER, SELFPAY ==
[2024-01-18 19:20] LABS: ESR 3 mm/hr (0-20); HCT 36.9 % (36.0-46.0); HGB 12.5 g/dL (11.2-15.7); MCH 29.6 pg (27.0-33.0); MCHC 33.9 % (32.0-36.0); MCV 87 fL (80-95); MPV 10.7 fL (8.0-11.0); Platelet Count 283 10^3/uL (130-400); RBC 4.23 10^6/uL (3.93-5.22); RDW 13.1 % (11.7-14.6); RDW-SD 41.8 fL; WBC 7.31 10^3/uL (4.4-10.8)
[2024-01-18 19:45] LABS: ALT 27 U/L (14-59); AST 18 U/L (15-37); Albumin 3.9 g/dL (3.4-5.0); Alkaline Phosphatase 60 U/L (46-116); Anion Gap 11.1 mmol/L (3-11); BUN 14 mg/dL (7-18); Bilirubin, Total 0.3 mg/dL (0.2-1.0); CO2 25.9 mmol/L (21.0-32.0); CREATININE 0.7 mg/dL (0.55-1.02); Chloride 104 mmol/L (98-107); Estimated GFR 108.62 (mL/min/1.73m2); Glucose 104 mg/dL (74-106); Potassium 4.3 mmol/L (3.5-5.1); Sodium 141 mmol/L (136-145)
[2024-01-18 19:49] LABS: C-Reactive Protein < 0.50 mg/dL (<or=0.5)
[2024-01-19 20:07] LABS: Parathyroid Hormone,Intact 44 pg/mL (19-88)
== END 2024-01-18 16:05 | disposition home or self-care (01) ==
LOC: NCHCN 16:04
PROVIDERS: PCP Nurse Practitioner Family; Visit Provider Nurse Practitioner Family
DX: K50.90 Crohn's disease, unspecified, without complications (principal)
CPT/HCPCS: 80053; 85027; 85652; 83970; 84443; 86140

== ENCOUNTER 2024-04-18 17:56 | Outpatient (REF) | payer OTHER, SELFPAY ==
--- NOTE | 2024-04-18 13:50 | SKI_PTH ---
PATIENT: Dee Montgomery [facility] U[facility][id number] AGE/SX: 43/F ROOM: RE04/18/[address]: Ginette Davidson : 1980 BED: DIS: 04/18/2024 SPEC #: [id number] RECD: 04/18/24 18:33 STATUS: BRIDGET REQ #: [id number] GREGORY: 04/18/24 13:[address]: Ginette Davidson DEPT: Surgical Specimen RECD BY: Anastasia Vivar ENTERED: 04/18/24 18:34 SP TYPE: JACK BECERRIL DR: Unknown,Unknown Tissues: 1 - SKIN BIOPSY(SHAVE/PUNCH) Procedures: SKIN LEVEL 4 Comments: [id number]
--- OUTSIDE RECORDS SUMMARY | 2024-04-18 17:58 | XMS_ITS | Encounter Summary ---
Author Organization [facility] Address [address] [place] [address] Care Team Providers Care Supervisor White Sugar Name Role Phone Unavailable Primary Care Provider Unavailabl e Encounter Details Date Type Department Care Team (Late st Contact Info) Description 01/19/2024 Lab Requisition [facility] Pathology & Laboratory Medicine - [facility] [address] [place] [address] Outr Resulting Lab, Provider Social History Tobacco Use Types Packs/Day Years Used Date Smoking Tobacco: Never Assessed Interpersonal Safety Answer Date Record ed Physically Hurt Never 01/30/2021 Verbally Threaten Not on file 01/30/2021 Sex and Gender Information Value Date Recorded Sex Assigned at Not on file Gender Identity Not on file Sexual Orientation Not on file documented as of this encounter Plan of Treatment Not on file documented as of this encounter Procedures Procedure Name Priority Date/Time Associated Diagnosis Comments PTH INTACT Routine 01/18/2024 14:20 EDT documented in this encounter Results * PTH INTACT (01/18/2024 14:20 EDT) Intact PTH 44 19 - 88 pg/mL 01/19/2024 20:02 EDT [facility] Blood VENOUS BLOOD / Unknown 01/18/2024 14:20 EDT 01/19/2024 17:40 EDT Provider Outr Resulting Lab CHEMISTRY & BLOOD GAS ORDERABLES [facility] [address] [place], [place] [address] documented in this encounter Visit Diagnoses Not on filedocumented in this encounter
--- OUTSIDE RECORDS SUMMARY | 2024-04-18 17:58 | XMS_ITS | Clinical Summary ---
Author Organization [facility] Address [address] [place] [address] Care Team Providers Care Shipfitters Supervisor Name Role Phone Unavailable Primary Care Provider Unavailabl e Encounters Date Type Department Care Team Description 01/19/2024 Lab Requisition [facility] Pathology & Laboratory Medicine - [facility] [address] [place] [address] Outr Resulting Lab, Provider from Last 3 Months Social History Tobacco Use Types Packs/Day Years Used Date Smoking Tobacco: Never Assessed Interpersonal Safety Answer Date Record ed Physically Hurt Never 01/30/2021 Verbally Threaten Not on file 01/30/2021 Sex and Gender Information Value Date Recorded Sex Assigned at Not on file Gender Identity Not on file Sexual Orientation Not on file Plan of Treatment Health Maintenance Due Date Last Done Comments Hepatitis C Screen 1980 Hepatitis B Vaccine (1 of 3 - 19+ 3-dose series) 05/26 COVID-19 Vaccine (2022- season) 2023 Procedures Procedure Name Priority Date/Time Associated Diagnosis Comments PTH INTACT Routine 01/18/2024 14:20 EDT from Last 3 Months Results * PTH INTACT (01/18/2024 14:20 EDT) Intact PTH 44 19 - 88 pg/mL 01/19/2024 20:02 EDT [facility] Blood VENOUS BLOOD / Unknown 01/18/2024 14:20 EDT 01/19/2024 17:40 EDT Provider Outr Resulting Lab CHEMISTRY & BLOOD GAS ORDERABLES [facility] [address] [place], [place] [id number] from Last 3 Months
--- OUTSIDE RECORDS SUMMARY | 2024-04-18 17:58 | XMS_ITS | Encounter Summary ---
Author Organization [facility] Address [address] [place] [address] Care Team Providers Care Hosiery Looper Name Role Phone Unavailable Primary Care Provider Unavailabl e Encounter Details Date Type Department Care Team (Latest Contact Info) Description 01/30/2021 Lab Requisition [facility] Pathology & Laboratory Medicine - [facility] [address] [place] [address] Nayana Joiner FNP [address] [place], [place] [id number] Encounter for general adult medical examination without abnormal findings; Encounter for screening for malignant neoplasm of cervix; Encounter for screening for human papillomavirus (HPV) Social History Tobacco Use Types Packs/Day Years [...] Procedure Name Priority Date/Time Associated Diagnosis Comments PAP TEST Today 01/28/2021 13:15 EDT Encounter for general adult medical examination without abnormal findings Encounter for screening for malignant neoplasm of cervix Encounter for screening for human papillomavirus (HPV) HPV DNA DETECTION WITH GENOTYPING, PCR Today 01/28/2021 13:15 EDT Encounter for general adult medical examination without abnormal findings Encounter for screening for malignant neoplasm of cervix Encounter for screening for human papillomavirus (HPV) documented in this encounter Results * HUMAN PAPILLOMAVIRUS (HPV) DETECTION-HIGH RISK TYPES (01/28/2021 13:15 EDT) HPV other High Risk types, PCR Negative Negative 02/06/2021 12:50 EDT [facility] Papanicolaou smear specimen (specimen) CERVIX UTERI STRUCTURE / Unknown 01/28/2021 13:15 EDT 02/03/2021 11:59 EDT Nayana Joiner PANTOMIMIST MICROBIOLOGY - GENER AL ORDERABLES [facility] [address] [place] [address] * PAP TEST (01/28/2021 13:15 EDT) Specimens A. Cervix and/or Endocervix , ThinPrep Imaging System with Manual Evaluation 02/06/2021 12:50 EDT [facility] Specimen Adequacy Satisfactory for Evaluation - transformation zone component present Scant due to excessive blood 02/06/2021 12:50 [facility] General Categorization Negative for intraepithelial lesion or malignancy 02/06/2021 12:50 [facility] Attestation . 02/06/2021 12:50 [facility] at 1250 Clinical History See below 02/07/20 12:50 T [facility] HPV The result for the Human Papillomavirus (HPV) Detection-High Risk Types is Negative. No E6 or E7 mRNA is detected from HPV types 16,18,31,33,35,39 ,45,51,52,56,58,5 9,66, and 68 by pediatric genetic counselor mediated amplification.Lynn ting was performed on specimen [id number] and was resulted on 02/05/2021 1530 EDT by GEMMA, LAB INSTRUMENT RESULTS IN 02/06/2021 12:50 T [facility] Performing Lab [facility] 02/06/2021 12:50 T [facility] Scanned Images 02/06/2021 12:50 T [facility] Papanicolaou smear specimen (specimen) CERVIX UTERI STRUCTURE / Unknown 01/28/2021 13:15 EDT 01/30/2021 9:05 EDT Nayana Joiner PANTOMIMIST PATHOLOGY ORDERABLES [facility] [address] [place] [address] documented in this encounter Visit Diagnoses Diagnosis Encounter for general adult medical examination without abnormal findings Unspecified general medical examination Encounter for screening for malignant neoplasm of cervix Screening for malignant neoplasm of the cervix Encounter for screening for human papillomavirus (HPV) Special screening examination for human papillomavirus (HPV) documented in this encounter
--- OUTSIDE RECORDS SUMMARY | 2024-04-18 17:58 | XMS_ITS | Patient Health Record ---
Author Organization [facility] Address [address] [place] [address] Care Team Providers Care Senior Maintenance Technician Name Role Phone Jaime Anaya Unavailable [phone] Emili Hopkinstoan Unavailable [phone] Allergies No Known Allergies Reason For Referral No Information Medications Medication SIG (Take, Route, Frequency, Duration) Notes Start Date End Date Status Vyvanse 40 MG 1 capsule in the morning Orally Once a day Active tiZANidine HCl 4 mg 1 tablet Orally nightly for 30 Not-Taking Celecoxib 200 MG 1 capsule with food Orally twice a day for 30 days Active Docusate Sodium 50 MG 1 capsule as neede d Orally Once a day PRN Not-Taking Cimzia Prefilled 2 X 200 MG/ML 1 ml Subcutaneous every 2 weeks 09/21/2018 Not-Taking Cholecalciferol 1000 UNIT 1 capsule Orally Once a day Not-Taking Apriso 0.375 GM 4 capsules in the morning Orally Once a day for 30 day(s) 1 gm daily Not-Taking Magnesium Citrate 125 MG Orally Not-Taking Lidoderm 5 % 1 patch to skin remove after 12 hours Externally Once a day PRN 07/26/2018 Not-Taking Fluocinolone Acetonide 0.01 % 1 application Externally Twice a day 05/13/2020 Not-Taking Fish Oil 1000 MG 1 capsule Orally Once a day Not-Taking Stelara 90 MG/ML 90mg Subcutaneous every 8 weeks Active Pimecrolimus 1 % 1 application Externally Twice a day Not-Taking Medrol (Vincent) 4 MG as directed Orally as directed 05/13/2020 Not-Taking Medrol 16 MG 3 tablets x 7 days; 2 tablets x 7 days; 1 tablet x 4 days; 1/2 tablet x 3 days Orally daily 06/15/2018 Not-Taking Senna 8.6 MG 1 tablet at bedtime as needed Orally Once a day PRN Not-Taking MiraLax 17 GM 1 packet mixed with 8 ounces of fluid Orally Once a day Active Probiotic - Orally Not-Taki ng predniSONE 10 MG 60mg daily x 5 day, then 30mg x 3 days, 20mg x 3 days, then 10mg x 3 days. take in the am, with food. Orally as directed 06/08/2018 Not-Taking Turmeric 500 MG Orally Not- Taking Stelara 90 MG/ML INJECT 90 MG UNDER THE SKIN EVERY 8 WEEKS Active Multivitamin Adult - Orally Active Stelara 130 MG/26ML 390mg Intravenous once 10/09/2019 Active Adderall 10 MG 1 tablet as needed Orally once a day Active Vitamin D-3 125 MCG (5000 UT) as directed Orally Active Problems Problem Type SNOMED Code ICD Code Onset Dates Problem Status W/U Status Risk Notes Problem 389544068 Lung nodule (R91.1) Active confirmed Problem Solitary sacroiliitis (844598824) Sacroiliitis (M46.1) Active confirmed Problem 26100420547145204 Bilateral sacroiliitis (M46.1) Active confirmed Problem 6317785 Inflammatory arthritis (M19.90) Active confirmed Problem 37165708 Crohns disease with complication, unspecified gastrointestinal tract location (K50.919) Active confirmed Problem 118686697 Herniated thorac ic disc without myelopathy (M51.24) Active confirmed Problem 22247158464868632 Carpal tunnel syndrome on both sides (G56.03) Active confirmed Problem 39055967 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) Active confirmed Vital Signs Heart Rate 108 /min 12/27/2023 Blood pressure diastolic 71 mm Hg 12/27/2023 Oximetry 99 % 12/27/2023 Height 66.5 in 12/27/2023 Blood pressure systolic 116 mm Hg 12/27/2023 Weight 134 lbs 12/27/2023 BMI 21.3 kg/m2 12/27/2023 Encounters Encounter Location Date Provider Diagnosis [facility] [address] [place] [address] 12/17/2023 Cedric Mcguire [facility] [address] [place] [address] 12/27/2023 Cedric Mcguire Crohns disease with complication, unspecified gastrointestinal tract location K50.919 ; Inflammatory arthritis M19.90 ; Herniated thoracic disc without myelopathy M51.24 and Carpal tunnel syndrome on both sides G56.03 [facility] [address] [place] [address] 01/07/2024 Cedric Mcguire Crohns disease with complication, unspecified gastrointestinal tract location K50.919 [facility] [address] [place] [address] 02/08/2024 Jaime Anaya Assessments Encounter Date Diagnosis (ICD Code) Assessment Notes Treat ment Notes Treatment Clinical Notes 01/07/2024 Crohns disease with complication, unspecified gastrointestinal tract location (ICD-10 - K50.919) 12/27/2023 Inflammatory arthrit is (ICD-10 - M19.90) As above. Also likely a component of Celiac (despite the negative biopsy). She manages this with diet. COntinue celecoxib PRN. 12/27/2023 Crohns disease with complication, unspecified gastrointestinal tract location (ICD-10 - K50.919) Patient with CD and IBDAA. Had partial improvement on Humira, then Cimzia. On Stelara now She is likely in LDAS; continue Stelara 90mg every 8 weeks. Will not change to another agent. Check labs 12/27/2023 Herniated thoracic disc without myelopathy (ICD-10 - M51.24) 12/27/2023 Carpal tunnel syndro me on both sides (ICD-10 - G56.03) Much improved now - suspect this is due to better treatment of her inflammatory arthritis. 12/27/2023 Other Plan Of Treatment Future Test Test Name Order Date MAMMOGRAM SCREENING 04/22/2018 DRAIN/INJECT, JOINT/BURSA JOINT 06/16/20 18 DRAIN/INJECT, JOINT/BURSA JOINT 06/16/20 18 CMP/HEPATIC([facility]) 02/21/2020 ESR/Sed Rate ([facility]) 02/21/2020 CRP - Inflammation ([facility]) 02/21/20 CBC with Differential (AUTO) 02/21/2020 CMP/HEPATIC([facility]) 05/06/2020 ESR/Sed Rate ([facility]) 05/06/2020 CRP - Inflammation ([facility]) 05/06/20 20 CBC with Differential (AUTO) 05/06/2020 CMP([facility]) 10/06/2021 Vitamin D, 25 Hydroxy([facility]) 2021 ESR/Sed Rate ([facility]) 10/06/2021 CRP - Inflammation ([facility]) 10/06/19 22 CBC with Differential (AUTO) 10/06/2021 CMP([facility]) 12/27/2023 ESR/Sed Rate ([facility]) 12/27/2023 CRP - Inflammation ([facility]) 12/27/19 24 CBC with Differential (AUTO) 12/27/2023 Next Appt Details Provider Name:Cedric Mcguire, 06/29/2024 01:30:00 PM, [address] [place] [address], [phone], Insurance Providers Payer Name Payer Address Payer Phone Subscriber Number Group Number Insured Name Patient Relationship to Insured Coverage Start Date Coverage End Date [facility] [address] [place] [address] [phone] [id number] Dee Montgomery Self - patient is the insured 2 o [facility] [address] [place] [address] [id number] Dee Montgomery Self - patient is the insured 5 Medical (General) History Medical History History ICD Code Crohns Disease Low Vitamiin D Osteopenia Secondary Hyperparathyroidism Ankylosing spondylitis Gluten intolerance SVT ADHD
--- OUTSIDE RECORDS SUMMARY | 2024-04-18 17:58 | XMS_ITS | Encounter Summary ---
Author Organization [facility] Address [address] [place] [address] Care Team Providers Care Authorization Specialist Name Role Phone Unavailable Primary Care Provider Unavailabl e Encounter Details Date Type Department Care Team (Late st Contact Info) Description 07/09/2021 Lab Requisition [facility] Pathology & Laboratory Medicine - [facility] [address] [place] [address] Outr Resulting Lab, Provider Social History Tobacco [...] Procedure Name Priority Date/Time Associated Diagnosis Comments ZZCOVID-19 TEST [facility] LAB PCR Today 07/09/2021 11:50 EDT COVID-19 TESTING Routine 07/09/2021 11:5 0 EDT documented in this encounter Results * COVID-19 TEST [facility] LAB PCR (07/09/2021 11:50 EDT) Swab ENTIRE NASOPHARYNX / Unknown 07/09/2021 11:50 EDT 07/09/2021 17:54 EDT Provider Outr Resulting Lab MICROBIOLOGY - GENERAL ORDERABLES [facility] [address] [place] [address] * COVID-19 TESTING (07/09/2021 11:50 EDT) COVID-19 rt-PCR Result Negative Negative 07/10/2021 11:23 EDT [facility] Comment: This test has not been FDA cleared or approved. This test has been authorized by FDA under an EUA for use by authorized laboratories. This test has been authorized only for detection of nucleic acid from 2019-nCoV, not for any other viruses or pathogens. This test is only authorized for the duration of the declaration that circumstances exist justifying the authorization of emergency use of in vitro diagnostic tests for detection and/or diagnosis of 2019-nCoV under section 564(b)(1) of Act, 21 U.S.C ?? 360bbb-3(b) (1), unless the authorization is terminated or revoked sooner. Negative results do not preclude 2019-nCoV infection and should not be used as the sole basis for treatment or other patient management decisions. Negative results must be combined with clinical observations, patient history, and epidemiological information. Testing was performed using the linus SARS-CoV-2 assay ([employer] on the Linus 6800 System Performing Lab Linus [address] [facility] Lab 07/10/2021 11:23 EDT [facility] Swab 07/09/2021 11:5 0 EDT 07/09/2021 17:54 EDT Provider Outr Resulting Lab MICROBIOLOGY - GENERAL ORDERABLES [facility] [address] [place] [address] documented in this encounter Visit Diagnoses Not on filedocumented in this encounter
--- OUTSIDE RECORDS SUMMARY | 2024-04-18 17:58 | XMS_ITS | Referral Summary ---
Author Organization [facility] Address [address] [place] [address] Care Team Providers Care Registration Manager Name Role Phone Unavailable Primary Care Provider Unavailabl e Encounters Date Type Department Care Team Description 01/19/2024 Lab Requisition [facility] Pathology & Laboratory Medicine - [facility] [address] [place] [address] Outr Resulting Lab, Provider from Last 3 Months Social History Tobacco Use Types Packs/Day Years Used Date Smoking Tobacco: Never Assessed Interpersonal Safety Answer Date Record ed Physically Hurt Never 01/30/2021 Verbally Threaten Not on file 01/30/2021 Sex and Gender Information Value Date Recorded Sex Assigned at Not on file Gender Identity Not on file Sexual Orientation Not on file Plan of Treatment Not on file Procedures Procedure Name Priority Date/Time Associated Diagnosis Comments PTH INTACT Routine 01/18/2024 14:20 EDT from Last 3 Months Results * PTH INTACT (01/18/2024 14:20 EDT) Intact PTH 44 19 - 88 pg/mL 01/19/2024 20:02 EDT [facility] Blood VENOUS BLOOD / Unknown 01/18/2024 14:20 EDT 01/19/2024 17:40 EDT Provider Outr Resulting Lab CHEMISTRY & BLOOD GAS ORDERABLES [facility] [address] [place] [address] from Last 3 Months
== END 2024-04-18 17:57 | disposition home or self-care (01) ==
LOC: NCHCN 17:56
PROVIDERS: Visit Provider Nurse Practitioner Family
DX: D22.61 Melanocytic nevi of right upper limb, including shoulder (principal)
CPT/HCPCS: 88305

== ENCOUNTER 2024-04-20 13:33 | Outpatient (CLI) | payer OTHER, SELFPAY ==
--- NOTE | 2024-04-20 08:36 | DI.RAD_ITS ---
Exam(s) XR KNEE LT 3V AP,LAT,JOSE DANIEL EXAM: XR KNEE LT 3V AP,LAT,JOSE DANIEL CLINICAL HISTORY: F/U SURGERY. TECHNIQUE: 2D digital imaging was performed. COMPARISON: CR XR KNEE LT 3V AP,LAT,JOSE DANIEL from 03/15/2023 CR XR KNEE RT 3V AP,LAT,JOSE DANIEL from 04/20/2024 FINDINGS: 3 views Stable position the patellofemoral compartment prosthesis.. However, on the weight-bearing AP view t here is very subtle zone of lucency between the lateral aspect of the prosthesis and the femoral cond yle, not previously evident. May represent element of loosening. There is no significant joint space narrowing in all 3 compartments. IMPRESSION: As above. DATA REPOSITORY: RADIATION DOSE DELIVERED:
--- NOTE | 2024-04-20 08:37 | DI.RAD_ITS ---
Exam(s) XR KNEE RT 3V AP,LAT,JOSE DANIEL EXAM: XR KNEE RT 3V AP,LAT,JOSE DANIEL CLINICAL HISTORY: F/U SURGERY. TECHNIQUE: 2D digital imaging was performed. COMPARISON: CR XR KNEE RT 4V AP,LAT,JOSE DANIEL,PAT from 11/09/2022 CR XR KNEE LT 3V AP,LAT,JOSE DANIEL from 03/15/2023 CR XR KNEE RT 3V AP,LAT,JOSE DANIEL from 03/15/2023 CR XR KNEE LT 3V AP,LAT,JOSE DANIEL from 04/20/2024 FINDINGS: Again noted is a patellofemoral compartment prosthesis. On the frontal view there is subtle lucent z one between the prosthesis and the lateral femoral condyle, not evident on the March 2023 images. Thi s may represent subtle loosening. No significant narrowing of the medial lateral compartments of the knee. IMPRESSION: As above. DATA REPOSITORY: RADIATION DOSE DELIVERED:
== END 2024-04-20 13:34 | disposition home or self-care (01) ==
LOC: DIORS 13:33
PROVIDERS: PCP Nurse Practitioner Family; Visit Provider Physician Assistant
DX: Z96.653 Presence of artificial knee joint, bilateral
CPT/HCPCS: 73562

== ENCOUNTER 2024-08-09 02:01 | Outpatient (CLI) | payer OTHER, SELFPAY ==
--- NOTE | 2024-08-09 | DI.MAMMO_ITS ---
Exam(s) MAMMO SCREENING EXAM: MAMMO SCREENING CLINICAL HISTORY: SCREENING, Z12.31 TECHNIQUE: Bilateral full field digital CC and MLO mammographic images were obtained with 3D tomosyn thesis and utilizing computer aided detection (CAD). COMPARISON: This is a baseline examination. FINDINGS: Masses/Architectural Distortion: There is a question of an area of architectural distortion in outer left breast on the craniocaudad view (slice 14). Microcalcifications: No suspicious pleomorphic-type are seen. Skin Thickening/Nipple Retraction: None. IMPRESSION: 1. Question of a area of architectural distortion in the outer left breast on the craniocaudad view. 2. Spot compression views requested for further evaluation. Targeted left breast ultrasound may be i ndicated at that time. BI-RADS Category 0 - Incomplete: Need additional imaging evaluation Breast Density - Category C - Heterogeneously dense Breast density category C or D implies that the patient has dense breast tissue. Dense breast tissue is very common and is not abnormal but dense breast tissue can make it harder to find cancer on a ma mmogram. Also, dense breast tissue may increase their breast cancer risk. This information about the result of the mammogram report was provided to the patient to raise their awareness. Use this report when you speak with the patient about their risks for breast cancer, which includes their family hist ory. At that time, you may recommend for more screening tests (Ultrasound or MRI) as they might be us eful based on their risk. A negative radiographic report should not delay biopsy if a dominant or clinically suspicious mass is present. Up to ten percent of cancers are not identified on mammography. A negative report may reinforce clinical impression. Adenosis and dense breasts may obscure an underlying neoplasm. False positive reports average 6 to 10%. Patient will receive a letter notifying them of these results.
== END 2024-08-09 02:21 ==
LOC: DI 02:01
PROVIDERS: PCP Nurse Practitioner Family; Visit Provider Nurse Practitioner Family
DX: Z12.31 Encounter for screening mammogram for malignant neoplasm of breast (principal); R92.333 Mammographic heterogeneous density, bilateral breasts
CPT/HCPCS: 77063; 77067

== ENCOUNTER 2024-08-18 00:25 | Outpatient (CLI) | payer OTHER, SELFPAY ==
--- NOTE | 2024-08-18 | DI.US_ITS ---
Exam(s) MG MAMMO SCREEN CALL BACK UNI US BREAST LT COMPLETE EXAM: MG MAMMO SCREEN CALL BACK UNI CLINICAL HISTORY: F/U MAMMO, OUTER LT BREAST ARCHITECTURAL DISTORTION,R92.8. TECHNIQUE: Craniocaudal and mediolateral oblique spot compression digital Mammography views of the r ightbreast with Tomosynthesis and right breast ultrasound. COMPARISON: MG MG MAMMO SCREENING from 08/09/2024 US US BREAST LT COMPLETE from 08/18/2024 FINDINGS: Mammography/Tomosynthesis: Masses: None seen. Architectural Distortion: None seen. Microcalcifictions: No suspicious pleomorphic-type are seen. Skin Thickening/Nipple Retraction: None. Right breast US: Echotexture: Normal appearance of the glandular tissue. Shadowing: No suspicious foci. Cyst: 6 millimeter cyst 2 o'clock position 3 cm from the nipple. Solid lesions: Posterior 12 x 3 x 9 millimeter elongated hypoechoic nodule with central fatty hilum, consistent with a lymph node. Ductal dilation: Mildly dilated duct in the retroareolar region. IMPRESSION: 1. No evidence of malignancy is noted. 2. Unless there is more urgent need, follow-up screening mammography is recommended, as per [place] [employer] guidelines. 3. The findings were discussed with the patient on the date of the examination. BI-RADS Category 2 - Benign Findings Breast Density - Category C - Heterogeneously dense A mammogram that demonstrates density of C or D indicates the patient's breast tissue is dense. Dense breast tissue is very common and is not abnormal, but dense breast tissue can make it harder to find cancer on a mammogram. Also, dense breast tissue may increase their breast cancer risk. This informa tion about the result of the mammogram report was provided to the patient to raise their awareness. U se this report when you speak with the patient about their risks for breast cancer, which includes th eir family history. At that time, you may recommend for more screening tests (Ultrasound or MRI) as t hey might be useful based on their risk. A negative radiographic report should not delay biopsy if a dominant or clinically suspicious mass is present. Up to ten percent of cancers are not identified on mammography. A negative report may reinforce clinical impression. Adenosis and dense breasts may obscure an underlying neoplasm. False positive reports average 6 to 10%. Patient will receive a letter notifying them of these results.
== END 2024-08-18 00:45 ==
LOC: DI 00:25
PROVIDERS: PCP Nurse Practitioner Family; Visit Provider Nurse Practitioner Family
DX: R92.8 Other abnormal and inconclusive findings on diagnostic imaging of breast (principal); D24.9 Benign neoplasm of unspecified breast; R92.333 Mammographic heterogeneous density, bilateral breasts
CPT/HCPCS: 76642; 77063; 77067

== ENCOUNTER 2025-02-21 09:46 | Outpatient (REF) | payer OTHER, SELFPAY ==
[2025-02-21 15:48] LABS: Calculated LDL 112 mg/dL (<100); Cholesterol 194 mg/dL (<200); HDL Cholesterol 72 mg/dL (>or=50); Triglyceride 51 mg/dL (<150)
[2025-02-22 11:19] LABS: HIV-1/2 Ag & Ab Screen Negative (Negative)
[2025-02-22 11:32] LABS: Hepatitis C Ab w Rflx HCV PCR Negative (Negative)
== END 2025-02-21 09:47 | disposition home or self-care (01) ==
LOC: NCHCN 09:46
PROVIDERS: PCP Nurse Practitioner Family; Visit Provider Student in an Organized Health Care Education/Training Program
DX: Z11.4 Encounter for screening for human immunodeficiency virus [HIV] (principal); Z11.59 Encounter for screening for other viral diseases; Z13.220 Encounter for screening for lipoid disorders
CPT/HCPCS: 80061; 86803; 87389

== ENCOUNTER 2025-05-11 08:27 | Outpatient (CLI) | payer OTHER, SELFPAY ==
--- NOTE | 2025-05-11 08:00 | DI.RAD_ITS ---
Exam(s) XR KNEE LT 3V AP,LAT,JOSE DANIEL EXAM: XR KNEE LT 3V AP,LAT,JOSE DANIEL CLINICAL HISTORY: ANNUAL F/U L TKA. TECHNIQUE: 2D digital imaging was performed. COMPARISON: CR XR KNEE LT 3V AP,LAT,JOSE DANIEL from 04/20/2024 CR XR KNEE RT 3V AP,LAT,JOSE DANIEL from 05/11/2025 FINDINGS: Again noted is a patellofemoral compartment prosthesis which appears unchanged. The previously described thin area of lucency at the interface between the lateral aspect the prosthesis and the inner aspect of the lateral femoral condyle exhibits minimal if any significant change when compared to images of 04/20/2024. There is no radiographic evidence of osteomyelitis. IMPRESSION: As above. Unchanged from images of 04/20/2024. DATA REPOSITORY: RADIATION DOSE DELIVERED:
--- NOTE | 2025-05-11 08:00 | DI.RAD_ITS ---
Exam(s) XR KNEE RT 3V AP,LAT,JOSE DANIEL EXAM: XR KNEE RT 3V AP,LAT,JOSE DANIEL CLINICAL HISTORY: ANNUAL F/U R TKA. TECHNIQUE: 2D digital imaging was performed. COMPARISON: CR XR KNEE RT 3V AP,LAT,JOSE DANIEL from 04/20/2024 FINDINGS: 3 views There is the patellofemoral compartment prosthesis again noted which appears unchanged from 04/20/2024. No fracture or loosening evident. The right patella is again noted to be tilted laterally. IMPRESSION: Stable appearance DATA REPOSITORY: RADIATION DOSE DELIVERED:
== END 2025-05-11 08:28 | disposition home or self-care (01) ==
LOC: DIORS 08:27
PROVIDERS: PCP Nurse Practitioner Family; Visit Provider Physician Assistant
DX: Z96.653 Presence of artificial knee joint, bilateral (principal)
CPT/HCPCS: 73562

== ENCOUNTER 2025-05-30 01:04 | Outpatient (CLI) | payer OTHER, SELFPAY ==
--- NOTE | 2025-05-30 06:00 | DI.NM_ITS ---
Exam(s) NM BONE SCAN 3 PHASE EXAM: NM BONE SCAN 3 PHASE CLINICAL HISTORY: JUSTIN KNEE PAIN, ? LOOSENING PROSTHETIC DEVICES,T84.84XA. TECHNIQUE: Injected Dose: 25 mCi Tc-99m MDP COMPARISON: CR XR KNEE LT 3V AP,LAT,JOSE DANIEL from 05/11/2025 CR XR KNEE RT 3V AP,LAT,JOSE DANIEL from 05/11/[address] LOWER EXTREMITY RT WO from 05/30/2025 FINDINGS: PERFUSION IMAGES: Not centered over the knees BLOOD POOL IMAGES: No abnormal uptake in the distal femoral condyles nor in the tibial plateaus. With respect of the patellofemoral compartments, there is mild uptake in the right patella (which has been resurfaced) as well as in the region of the left prosthesis appears DELAYED 3 HOUR IMAGES: There is relatively symmetrical uptake in both resurfaced patellas.. There is also some increased uptake in the left knee in the region of the prosthesis DELAYED IMAGING OF ENTIRE SKELETON: No abnormal uptake elsewhere in the articulations of the lower extremity including the ankles and hips nor elsewhere in the pelvis nor elsewhere in the rest of the entire skeleton. IMPRESSION: 1. Some uptake is seen in both patellas which have undergone resurfacing. There is also some increased activity in the left knee at the level of the implant in the anterior intercondylar level. Findings may imply aseptic loosening. DATA REPOSITORY:
--- NOTE | 2025-05-30 08:20 | DI.CT_ITS ---
Exam(s) CT LOWER EXTREMITY LT WO EXAM: CT LOWER EXTREMITY LT WO CLINICAL HISTORY: L KNEE PAIN,?LOOSENING ORTHOPEDIC PROSTHETIC DEVICE,T84.84XA. TECHNIQUE: Imaging Protocol: Axial computed tomography images with coronal and sagittal reformatted images were created and reviewed. COMPARISON: CR XR KNEE LT 3V AP,LAT,JOSE DANIEL from 05/11/2025 FINDINGS: The patient has a patella femoral prosthesis.The patellar component appears grossly unremarkable. There is artifact surrounding the femoral component. There is persistent minimal lucency around the femoral component of the prosthesis, particularly laterally. It appears grossly unchanged compared to prior examinations. There are no destructive changes or erosive changes of the bone. There is a small amount of fluid within the suprapatellar joint space but no significant joint effusion is seen. The soft tissues are grossly unremarkable. No suspicious lytic or sclerotic lesions are seen in the bones. No suspicious soft tissue calcifications are present. IMPRESSION: 1. Patellofemoral prosthesis. 2. Within the limits of the examination secondary to the artifact, there is a very thin area of lucency surrounding the femoral component of the prosthesis laterally. This is unchanged compared to prior x-rays of the prosthesis. 3. Bone scan may be considered for further characterization. RADIATION DOSE DELIVERED: 107.96mGy.cm Total DLP 107.96mGy.cm Total DLP DATA REPOSITORY: All CT scans at this facility are submitted to the National Radiology Data Registry (NRDR) Dose Index Registry (DIR) with the [employer] ([employer]). RADIATION OPTIMIZATION: All CT scans at this facility use at least one of these dose optimization techniques: automated exposure control; mA and/or kV adjustment per patient size (includes targeted exams where dose is matched to clinical indication); or iterative reconstruction.
--- NOTE | 2025-05-30 08:25 | DI.CT_ITS ---
Exam(s) CT LOWER EXTREMITY RT WO EXAM: CT LOWER EXTREMITY RT WO CLINICAL HISTORY: R KNEE PAIN, ? LOOSENING PROSTHETIC DEVICE,T84.84XA. TECHNIQUE: Imaging Protocol: Axial computed tomography images with coronal and sagittal reformatted images were created and reviewed. COMPARISON: CR XR KNEE RT 3V AP,LAT,JOSE DANIEL from 04/20/2024 CR XR KNEE RT 3V AP,LAT,JOSE DANIEL from 05/11/[address] LOWER EXTREMITY LT WO from 05/30/2025 FINDINGS: The patient has a right patellofemoral prosthesis. There is artifact from the femoral component of the prosthesis. This does limit the examination. The patellar component appears grossly unremarkable. There is no fracture identified. No suspicious lytic or sclerotic lesions are seen. No lucencies are seen around the femoral component of the prosthesis, however this area is obscured by artifact. The area of lucency seen around the femoral component on the x-ray is cannot be visualized on the current examination.There is a small amount of fluid in the joint space but no gross effusion. The soft tissues are unremarkable. IMPRESSION: Within the limits of the examination accounting for artifact, the patellofemoral prosthesis appears unremarkable. If there is continued clinical concern for loosening, bone scan should be considered. RADIATION DOSE DELIVERED: 115.42mGy.cm Total DLP 115.42mGy.cm Total DLP DATA REPOSITORY: All CT scans at this facility are submitted to the National Radiology Data Registry (NRDR) Dose Index Registry (DIR) with the [employer] (ACR). RADIATION OPTIMIZATION: All CT scans at this facility use at least one of these dose optimization techniques: automated exposure control; mA and/or kV adjustment per patient size (includes targeted exams where dose is matched to clinical indication); or iterative reconstruction.
== END 2025-05-30 01:24 ==
PROVIDERS: Visit Provider Student in an Organized Health Care Education/Training Program
DX: T84.84XA Pain due to internal orthopedic prosthetic devices, implants and grafts, initial encounter (principal); Z96.651 Presence of right artificial knee joint
CPT/HCPCS: 73700; 78315

== ENCOUNTER 2025-07-13 03:08 | Outpatient (CLI) | payer OTHER, SELFPAY ==
--- NOTE | 2025-07-13 06:45 | DI.MRI_ITS ---
Exam(s) MR LOWER JOINT LT WO EXAM: MR LOWER JOINT LT WO CLINICAL HISTORY: evaluate cartilage quality and tracking of Left knEE,MECHANICAL LOOSENING L. TECHNIQUE: Multiplanar multisequence MRI was performed. COMPARISON: MR MR LOWER JOINT LT WO from 12/29/[address] LOWER EXTREMITY LT WO from 05/30/2025 FINDINGS: BONES: There is no fracture or contusion pattern. JOINTS: The articular cartilage overlying the medial aspect of the lateral femoral condyle is difficult to visualize due to artifact from the patient's patellofemoral joint replacement. There does appear to be some hyperintense signal in the cartilage overlying the medial aspect of the lateral femoral condyle versus artifact. The articular cartilage is otherwise well maintained. No effusion is present. There is patellofemoral joint replacement. TENDONS: Extensor mechanism: Unremarkable. Medial retinaculum: Unremarkable. Lateral retinaculum: Unremarkable. Popliteus: Unremarkable. MUSCLES: Unremarkable. MENISCI: The medial meniscus is unremarkable. The lateral meniscus is unremarkable. SOFT TISSUES: Unremarkable. LIGAMENTS: Anterior Cruciate: Unremarkable. Posterior Cruciate: Unremarkable. Medial Collateral:Unremarkable. Lateral Collateral: Unremarkable. OTHER: IMPRESSION: 1. There are postsurgical changes of a patellofemoral joint replacement. 2. Mild hyperintense signal seen in the medial aspect of the articular cartilage overlying the lateral femoral condyle. Artifact versus chondromalacia. 3. No evidence of a ligament or meniscal tear. DATA REPOSITORY:
== END 2025-07-13 03:28 ==
LOC: DI 03:08
PROVIDERS: Visit Provider Student in an Organized Health Care Education/Training Program
DX: T84.033A Mechanical loosening of internal left knee prosthetic joint, initial encounter (principal); M76.31 Iliotibial band syndrome, right leg; M76.32 Iliotibial band syndrome, left leg; M94.262 Chondromalacia, left knee
CPT/HCPCS: 73721

== ENCOUNTER 2025-08-06 03:38 | Outpatient (CLI) | payer OTHER, SELFPAY ==
[2025-08-06 10:21] LABS: HCT 34.0 % (36.0-46.0); HGB 11.1 g/dL (11.2-15.7); MCH 28.0 pg (27.0-33.0); MCHC 32.6 % (32.0-36.0); MCV 86 fL (80-95); MPV 9.5 fL (8.0-11.0); Platelet Count 272 10^3/uL (130-400); RBC 3.97 10^6/uL (3.93-5.22); RDW 13.5 % (11.7-14.6); RDW-SD 41.8 fL; WBC 5.09 10^3/uL (4.4-10.8)
[2025-08-06 10:44] LABS: Anion Gap 7.7 mmol/L (3-11); BUN 14 mg/dL (7-18); CO2 26.3 mmol/L (21.0-32.0); Calcium 9.3 mg/dL (8.5-10.1); Chloride 105 mmol/L (98-107); Glucose 96 mg/dL (74-106); Potassium 4.0 mmol/L (3.5-5.1); Sodium 139 mmol/L (136-145)
== END 2025-08-06 03:39 | disposition home or self-care (01) ==
LOC: LBO 03:38
PROVIDERS: Visit Provider Student in an Organized Health Care Education/Training Program
DX: T84.033A Mechanical loosening of internal left knee prosthetic joint, initial encounter (principal); Z01.818 Encounter for other preprocedural examination
CPT/HCPCS: 36415; 80048; 85027

== ENCOUNTER 2025-08-14 08:31 | Day surgery (SDC) | payer OTHER, SELFPAY ==
[2025-08-14] VITALS (18 sets, daily range): BP systolic 93–164; BP diastolic 65–130; PULSE 48–147; RESP 9–20; TEMP 36.2–36.4; O2SAT 98–100; BMI 22.8
--- NOTE | 2025-08-14 07:17 | PDOC.DSDIS_ITS ---
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 Attending Provider: Mark Andrade Primary Care Provider: Jocelyn Cunningham Home Meds and New Rx's Prescriptions: New acetaminophen 500 mg tablet 1,000 mg PO Q8H PRN Qty: 90 0RF Rx Instructions: Take two tablets up to every 8 hours as needed for pain aspirin 81 mg tablet,delayed release (DR/EC) 81 mg PO BID 30 Days Qty: 60 0RF celecoxib [Celebrex] 200 mg capsule 200 mg PO BID PRNQty: 60 0RF Rx Instructions: Take one tablet twice daily for pain and inflammation docusate sodium [Colace] 100 mg capsule 100 mg PO BID Qty: 28 0RF pantoprazole 40 mg tablet,delayed release (DR/EC) 40 mg PO DAILY Qty: 14 0RF Rx Instructions: Take one tablet once daily dexamethasone 4 mg tablet 4 mg PO DAILY Qty: 2 0RF Rx Instructions: Take one tablet once daily for two days gabapentin 300 mg capsule 300 mg PO QHS Qty: 14 0RF Rx Instructions: Take one tablet at bedtime oxycodone 5 mg tablet 5 mg PO Q4H PRNQty: 18 0RF Rx Instructions: Take one tablet up to every 4 hours as needed for severe postoperative pain diazepam [Valium] 5 mg tablet 5 mg PO BID PRNQty: 5 0RF Rx Instructions: Take one tablet up to twice daily as needed for muscle spasms Continued cholecalciferol (vitamin D3) 125 mcg (5,000 unit) capsule 125 mcg PO DAILY Metamucil 3.4 gram/5.4 gram powder 1 tbsp PO BID Rx Instructions: mix into at least 8 oz of water or juice before administering lisdexamfetamine [Vyvanse] 60 mg capsule 60 mg PO DAILY Held ustekinumab [Stelara] 90 mg/mL Syringe 90 mg SUBCUT DIRECTED Hold Instructions: Resume on 09/03/25. Hold until we see you for postop visit in office Discontinued celecoxib [Celebrex] 200 mg capsule 200 mg PO BID PRN (Reason: pain) Qty: 60 6RF Rx Instructions: Take one tablet twice daily for pain and inflammation Discharge Instructions Additional Instructions: Patellofemoral Revision and IT band lengthening Discharge Instructions Activity: The most important activity is to walk and to work on gentle motion (both flexion and extension). You should try to take short walks a few times a day. It is important that when resting you work on keeping the knee straight. Avoid putting a pillow behind the knee as this will encourage flexion. Work on range of motion exercises as provided by Physical Therapy. - Start outpatient physical therapy within 2 weeks. - You should wear the HERBIE hose on both legs for 2 weeks. You may remove these at night. You may also use any compression sock in place of the HERBIE hose. - Utilize [employer] to review exercises, see videos on exercises and obtain basic information pertaining to your surgery and your recovery. Dressing: Remove the Stu wrap by 3 days after your surgery and put on the HERBIE stocking given to you from the hospital. Keep the surgical dressing (underneath the STU wrap) in place for at least one week. After the first week it may be removed and replaced with light gauze and tape or nothing. The wound and dressing may get wet after 3 days but avoid soaking the dressing or otherwise it will need to be changed. Many people prefer covering the dressing with cling wrap (saran wrap) to minimize it from getting soaked. If it gets wet, just pat dry. If it starts to peel off then it will need to be changed. Medications: - You should take Tylenol and anti-inflammatory Celebrex as your primary pain control medications. If the Celebrex is too expensive or not covered, please call the office for another alternative (Advil/Ibuprofen or Naproxen/Aleve) - You have been prescribed a stronger pain medication Oxycodone for breakthrough pain, take as needed as prescribed. - You have been prescribed a muscle relaxant Diazepam to take as needed. - You have also been prescribed a stomach acid reduction agent Pantoprozole to help reduce stomach acid and reflux. - You have been prescribed Gabapentin to take at night for restlessness and nerve pain. - You will be taking Aspirin 81mg twice a day for DVT prevention unless instructed otherwise. - You have also been prescribed Decadron to take to control post-operative nausea and pain. You will start this tomorrow. - If you have constipation you should take Colace (which has been prescribed) or Miralax (which is available [id number]). It takes most people 3-4 days to have a bowel movement. Follow-up: 2 weeks If you have any acute concerns or questions, please do not hesitate to contact the office at [phone]. You may contact Dr. Andrade with any questions after hours through the hospital at [phone] or on his cell phone at [phone]. Stand Alone Forms: Portal Information Referrals: Mark Andrade MD [ [facility] STAFF PHYSICIAN, Orthopaedic Surgical] Equipment/Supplies: Walker Activity:: Elevate Remove Dressings/Wound Care:: Do Not Remove Shower/Bathe:: Cover Diet:: As Tolerated Discharge Orders Discharge Orders: Discharge Order (Routine); Ordered 08/14/25 Ordered By: Jyoti Powell
--- NOTE | 2025-08-14 09:13 | W.ANESPRE ---
General Info Date of Service Date Performed: 08/14/25 Height: 5 ft 7 in Weight: 66.224 kg Body Mass Index (BMI): 22.8 Surgical Procedure: Operation Date: 08/14/25 10:55 Proposed Procedure Side Surgeon p Knee Total Revision of Trochlear Component Distal IT Band Lengthening (Arthrosurface) Left Mark Andrade MD Meds Allergies and Home Medications Allergies Allergy/AdvReac Type Severity Reaction Status Date / Time No Known Allergies Allergy Verified 08/14/25 09:17 Home Medication Medication Instructions Recorded ustekinumab 90 mg/mL subcutaneous 90 mg subcut DIRECTED 07/09/21 syringe (Authylara) Held on 08/14/25. Instructions: Resume on 09/03/25. Hold until we see you for postop visit in office cholecalciferol (vitamin D3) 125 125 mcg PO DAILY 08/14/21 mcg (5,000 unit) capsule psyllium husk 3.4 gram/5.4 gram 1 tbsp PO BID 02/22/23 oral powder (Metamucil) lisdexamfetamine 60 mg capsule 60 mg PO DAILY 07/03/24 (Vyvanse) acetaminophen 500 mg tablet 1,000 mg (2 x 500 mg) PO Q8H PRN 08/14/25 pain #90 tabs aspirin 81 mg tablet,delayed 81 mg PO BID 30 days #60 tabs 08/14/25 release celecoxib 200 mg capsule (Celebrex) 200 mg PO BID PRN #60 caps 08/14/25 dexamethasone 4 mg tablet 4 mg PO DAILY #2 tabs 08/14/25 diazepam 5 mg tablet (Valium) 5 mg PO BID PRN #5 tabs 08/14/25 docusate sodium 100 mg capsule 100 mg PO BID #28 caps 08/14/25 (Colace) gabapentin 300 mg capsule 300 mg PO QHS #14 caps 08/14/25 lisdexamfetamine 40 mg capsule 40 mg PO DAILY 08/14/25 oxycodone 5 mg tablet 5 mg PO Q4H PRN #18 tabs 08/14/25 pantoprazole 40 mg tablet,delayed 40 mg PO DAILY #14 tabs 08/14/25 release Current Visit Medications: Current Medications Generic Name Dose Route Start Last Admin Trade Name Freq PRN Reason Stop Dose Admin Acetaminophen 1,000 mg 08/14/25 06:00 Acetaminophen 500 Mg Tab PO 08/14/25 23:59 PREOP BACILIO Celecoxib 400 mg 08/14/25 06:00 Celecoxib 200 Mg Cap PO 08/14/25 23:59 PREOP BACILIO Gabapentin 300 mg 08/14/25 06:00 Gabapentin 300 Mg Cap PO 08/14/25 23:59 PREOP BACILIO Hydromorphone HCl 0.5 mg 08/14/25 07:15 Hydromorphone 2 Mg/Ml Syr IVP 09/13/25 07:14 Q2H PRN PRN Ringer's Solution 1,000 mls @ 80 mls/hr 08/14/25 06:00 IV 08/14/25 23:59 INFUSION BACILIO Cefazolin Sodium/Dextrose 2 gm in 50 mls @ 100 mls/hr 08/14/25 06:00 Ancef Duplex IVPB 08/14/25 23:59 PREOP BACILIO Tranexamic Acid/Sodium Chloride 1,000 mg in 100 mls @ 600 mls/hr 08/14/25 06:00 IVPB 08/14/25 23:59 PREOP BACILIO Cefazolin Sodium/Dextrose 1 gm in 50 mls @ 100 mls/hr 08/14/25 08:00 Ancef Duplex IVPB 08/15/25 00:29 Q8H BACILIO IV Miscellaneous Supplies 1 each 08/14/25 06:00 Iv Access IV 08/14/25 23:59 DIRECTED BACILIO Oxycodone HCl 0 mg 08/14/25 07:15 Oxycodone 5 Mg Tab PO 09/13/25 07:14 Q3H PRN PRN Pain Sodium Chloride 0 ml 08/14/25 06:00 Normal Saline Flush 10 Ml Syr IV 08/14/25 23:59 PRN PRN Sodium Chloride 0 ml 08/14/25 06:00 Normal Saline 10 Ml Vial IJ 08/14/25 23:59 DIRECTED PRN Sterile Water 0 ml 08/14/25 06:00 Water,Injection,Sterile 10 Ml Vial IJ 08/14/25 23:59 DIRECTED PRN Tranexamic Acid 1,300 mg 08/14/25 07:15 Tranexamic Acid 650 Mg Tab PO 09/13/25 07:14 ONCE PRN postoperative PFSH Active Problems Active Problems: Problem Status Onset Code Chondromalacia, left knee Acute M94.262 Mechanical loosening of internal left knee prosthetic joint Acute T84.033A 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 Acute M76.31, M76.32 SVT (supraventricular tachycardia) Chronic I47.1 Medical History Medical History Celiac disease Anxiety disorder Hyperparathyroidism ADHD Crohn's disease Surgical History Surgical History History of partial knee replacement (03/02/23) S/P R PATELLOFEMORAL REPLACEMENT History of partial knee replacement (03/02/23) S/P L PATELLOFEMORAL REPLACEMENT Bupivacaine only injection: 05/11/2025 History of colonoscopy Tobacco Smoking/Tobacco Use Status: Never Passive smoking exposure: No Alcohol Alcohol Intake: current Alcohol intake frequency: a few times a month Substance Use Substance use: Never Substance use type: does not use Vital Signs and Lab Results Lab Results Complete Blood Count: WBC, (4.4-10.8) 5.09 10^3/uL 08/06/25, 10:11 RBC, (3.93-5.22) 3.97 10^6/uL 08/06/25, 10:11 Hgb, (11.2-15.7) 11.1 g/dL L 08/06/25, 10:11 Hct, (36.0-46.0) 34.0 % L 08/06/25, 10:11 Plt Count, (130-400) 272 10^3/uL 08/06/25, 10:11 Complete Metabolic Panel: Sodium, (136-145) 139 mmol/L 08/06/25, 10:11 Potassium, (3.5-5.1) 4.0 mmol/L 08/06/25, 10:11 Chloride, (98-107) 105 mmol/L 08/06/25, 10:11 Carbon Dioxide, (21.0-32.0) 26.3 mmol/L 08/06/25, 10:11 BUN, (7-18) 14 mg/dL 08/06/25, 10:11 Creatinine, (0.55-1.02) 0.8 mg/dL 08/06/25, 10:11 Est GFR (CKD-EPI 2020), (mL/min/1.73m2) 91.40 08/06/25, 10:11 Calcium, (8.5-10.1) 9.3 mg/dL 08/06/25, 10:11 Glucose, (74-106) 96 mg/dL 08/06/25, 10:11 Imaging and Studies Imaging and Studies Study information below may be from another EMR and interpreted by another provider. Please see original notes in EMR for more complete details. EKG Summary: Exam: Resting ECG Reason for Exam: SVT Patient Location: O HR:87 bpm ECG Measurements Heart Rate 87 AXIS FL 123 P 80 QRSd 73 QRS 82 QT 337 T77 QTc 406 Conclusion Sinus rhythm...normal P axis, V-rate 50- 99 Normal Electrocardiogram Echocardiogram Summary: Conclusion Normal left ventricular wall thickness and chamber size. Estimated ejection fraction is 60%. Wall motion is normal Normal right ventricular size and systolic function Both atria are normal in size There is no structural or hemodynamically significant valvular disease Normal estimated right ventricular systolic pressure 19 mmHg Anesthesia Assessment and Plan Anesthesia History Personal History: No History of Anesthesia Complications Family History: No Family History of Anesthesia Complications Exercise Tolerance Exercise Tolerance: Metabolic Equivalents>4 Pertinent Negatives Pertinent Negatives: No Symptoms of GERD, No Major Cardiovascular Symptoms or Complaints, No Major Pulmonary Symptoms or Complaints and No History of CVA/TIA Cardiac & Pulmonary Exam Cardiac Exam: Normal S1/S2 Heart Sounds Pulmonary Exam: Clear Bilateral Breath Sounds Implantable Cardiac Device Does patient have a Pacemaker or an ICD?: No Airway Exam Known Difficult Airway: No Mallampati Class: 1 Mouth Opening: Normal (> 3cm) Thyromental Distance: Greater than 3 cm Neck Range of Motion: Full ROM Neck Circumference: Normal Teeth Condition: Normal Dentition ASA Classification ASA Score: ASA 2 Emergency Case?: No NPO Status NPO Status: NPO Clears >2 hours, Solids >8 hours Status Status: Negative HCG Anesthesia Plan Resuscitation Status: Full Code Anesthesia Technique: Spinal Anesthesia Airway Planned: Natural Airway Pain Management: Surgeon and patient request nerve block Monitors Used: Standard Monitors
[2025-08-14] MEDS: Acetaminophen 500 MG TAB 1000 MG PO (09:22)
[2025-08-14] MEDS: Celecoxib 200 MG CAP 400 MG PO (09:22)
[2025-08-14] MEDS: Gabapentin 300 MG CAP PO (09:22)
[2025-08-14] MEDS: Lactated Ringers 1,000 ML 80 ML IV (09:40)
[2025-08-14] MEDS: ceFAZolin 2 GM/50 ML BAG IVPB (10:40)
[2025-08-14] MEDS: TRANEXAMIC ACID/SOD. CHL. 1,000 MG/100 ML BAG 600 MG IVPB (10:45)
--- NOTE | 2025-08-14 11:08 | W.ANESNERVE ---
Nerve Block Single Injection Procedure Date and Time Date Performed: 08/14/25 Procedure Start: 10:02 Location Where Procedure Performed Procedure Location: Day Surgery Unit Reason Performed: Postoperative Analgesia Requesting Provider: Mark Andrade Timeout Performed Timeout Performed: Yes Monitoring Used ECG, Blood Pressure, SpO2 and See EMR for corresponding vital signs Sterility Sterility: Hand Hygiene, Surgical Cap, Surgical Mask, Sterile Gloves and Chlorhexidine Sedation Given During Procedure Sedation Given (Indicate Dose Given): Versed IV Dose:: 2mg Patient Mental Status Patient Mental Status: Sedate with meaningful communication Nerve Block 1st Nerve Block: Laterality: Left Block Type: Adductor Canal Ultrasound Image Saved?: Yes Needle / Catheter Used: 80mm SonoPlex II Local Anesthetic Bolus (Indicate Dose Given): Lidocaine used for local infiltration of skin, Injected in 3-5ml increments after negative blood aspiration, Bupivacaine 0.25% Dose:: 10mL and Exparel Dose:: 10mL Additives (Indicate Dose Given): None Ultrasound: Sterile probe cover and gel used Nerve Stimulator: Supplement to Ultrasound use and No twitch or parasthesia noted < 0.5 mA (0.6mA twitch noted, no parasthesia per patient verbal response, needle repositioned, no twitch or parasthesia noted with repositioned, block proceeded) Paresthesia: None Procedure Tolerated: No Complications Procedure Outcome: Successful Procedure Comment: 10:06 Following time our and prep of leg with Chlorhexidine with drying time, KEN Lantigua local to skin under direction guidance of ultrasound, patient reported some discomfort when advancing needle through sartorius belly with twitch noted at 0.8mA, needle redirected and patient reported continued discomfort, patient reports sharp not electric. Decision made to attempt nerve block in different plane. Second local infiltration of the skin was performed by Lenora Abarca CRNA and block placed per note above. Patient tolerated the procedure well. RN and patient's spouse in room. Performed By: Lenora Abarca
[2025-08-14] MEDS: EPINEPHrine 1 MG/ML AMP pres-free (12:03)
[2025-08-14] MEDS: ROPIvacaine 0.2% 200 MG/100 ML BAG (12:03)
[2025-08-14] MEDS: Ketorolac 30 MG/ML VIAL (12:03)
--- NOTE | 2025-08-14 12:52 | W.ANESPOSTOP ---
Postoperative Evaluation Date, Time and Location Date Performed: 08/14/25 Time Performed: 12:52 Patient Location: PACU Vital Signs Most Recent Imported Vital Signs: Most Recent Vital Signs Temp Pulse Resp BP Pulse Ox 36.2 C L 72 14 108/77 98 08/14/25 12:41 08/14/25 10:02 08/14/25 10:02 08/14/25 10:02 08/14/25 10:02 Pain Score Most Recent Pain Score: Most Recent Pain Score Pain Level 0 08/14/25 12:41 Assessment Mental Status: Awake (Alert & Oriented to Patient Baseline) Airway and Respiratory Function: Patent airway with normal (patient baseline) respiratory exam Cardiovascular Function: Hemodynamically Stable Hydration Status: Adequately Hydrated Nausea & Vomiting: Active Nausea or Vomiting Present Nausea and Vomiting Management: Nausea and vomiting active, being addressed with medication Pain: Pain is tolerable per patient (spinal still waning. ) Peripheral Nerve Block: Regional nerve block not resolved at time of post operative discharge
--- NOTE | 2025-08-14 13:08 | W.PM.OP ---
Operative Note Operative Note PRE-OP DIAGNOSIS: Loose Trochlear Component - LEFT Knee Distal Iliotibial Band Syndrome - LEFT Knee POST-OP DIAGNOSIS: same PROCEDURE: Revision Trochlear Component - LEFT Knee Distal Iliotibial Band Lengthening - LEFT Knee SURGEON: Mark Andrade PHOTO SPECIALIST: Jyoti Powell ANESTHESIA TYPE: Spinal Refer to Anesthesia Record ESTIMATED BLOOD LOSS: 50 PATHOLOGY: none sent TOURNIQUET TIME: 0 COMPLICATIONS: None Patient was transported to: PACU Patient's condition: stable Implants: Arthrosurface Cement Peg Indications: Dee is a 45-year-old active female who underwent a previous bilateral patellofemoral placement. Initially, she had improvement of her anterior based pain with flexion during activity. However, this started to return on the left side and was also accompanied by some bilateral lateral based pain. She was determined to have a loose trickle component in the left side with a tight IT band from distal IT band syndrome. Given the persistence of the symptoms and failure of other nonoperative options I offered trigly revision and IT band lengthening. Please see office notes for complete details. Given the continued symptoms, I recommended a patellofemoral replacement. I reviewed the risks of the procedure to include bleeding, infection, pain, stiffness, worsening medial or lateral compartment arthritis, patellar instability, loosening, fracture, clot. Despite these risks, Dee elected to proceed. Findings: A Z-lengthening of the IT band, gaining about 2 cm was performed without difficulty. The trochlear component had no bony ingrowth. The bed for the trochlear component was prepared and the component was cemented back in. Procedure Description: Dee was greeted in the preoperative holding area where the correct side was identified and marked. The consent was reviewed with the patient and signed. The history and physical was updated. All questions were answered. Preoperative mediacations were administered: Acetaminophen 1000mg, Celebrex 400mg, and Gabapentin 300mg. An adductor canal block was then administered by the anesthesia team in the DSU. She was taken back to the operating room. A spinal anesthestic was then administered. The patient was placed into the supine position on the operating room table. Posts were placed for positioning during the procedure. All bony prominences were well padded. Prophylactic antibiotics in the form of Cefazolin were administered. 1g of Tranxemic Acid was given intravenously within 30 minutes of incision. The left leg was then prepped with Chloraprep and draped in a standard fashion with impervious stockinette and extremity drape. A second prep with Chloraprep was performed prior to placing Ioband. A timeout to confirm correct identity, side and site, procedure, allergies, anesthesia, and medical concerns was performed. With the knee in 90 degrees of flexion I then turned my attention to the iliotibial band part of the procedure. A longitudinal incision approximately 6 cm in length was made over the distal IT band. This was taken down to the skin sharply and then deep dissection was carried down with scissor and blunt dissection to evaluate the borders of the IT band. Once the anterior and posterior aspects of the IT band were identified the proposed Z-lengthening was drawn on the IT band. This was made as a Z cut and the IT band with a proposed 2 cm of lengthening. A [place] elevator was placed underneath the IT band and the proposed cut was made. An additional adhesions were released. Distally and anteriorly adhesions between the IT band and the lateral capsule and soft tissues were released as well. This provided free mobility of the tibial band with notable gapping of the lengthening. I then reapproximated the iliotibial band in his newly lengthened position utilizing #2 FiberWire. This area was then thoroughly irrigated. The deep tissues were injected with a mixture of a periarticular cocktail consisting of 200 mg of ropivacaine, 0.5 mg of epinephrine, 30 mg of ketorolac, diluted to 100 cc. This was also injected into the subcutaneous tissues. The deep subcutaneous tissue was then closed with a #2-0 Vicryl. The skin was closed with a running 3-0 Monocryl. Attention was now turned to the trochlear part of the case. With the knee in some flexion, the previous midline incision had been previously marked on the skin. This previa incision was incised. Full thickness skin flaps were raised once the extensor mechanism was encountered. These were raised medially and laterally. Any bleeding was controlled with electrocautery. Once the extensor mechanism was fully exposed, a medial parapatellar arthrotomy was performed in a flexed position. All bleeding from the arthrotomy and the geniculate arteries was coagulated. The menisci and intrameniscal ligament was preserved. There was no observed gross cartilage defect. The trochlear component was appropriately positioned. I was able to place a [place] elevator on at the edge but was not grossly loose. However, with a few taps with a bone tamp, the trochlear component came off easily and there was no bony ingrowth to the backside of the trochlear component. I then prepared the trigger component bed utilizing curette and rongeur. All fibrous tissue was removed. The screw was removed and any fibrous or soft tissue within the track of the screw was removed with a rongeur and a curette. I continue to work in the trochlear bed, leaving all bone, that removing any soft tissue in this region. Once this was completed I then took a small K wire and made small penetrating holes into the subchondral bed for the trochlear cement penetration. On the back table a cement peg was then impacted onto the backside of the previously removed trocar component. High viscosity cement was prepared on the back table under vacuum preparation. Cement was placed onto the backside of the trochlear component. It was then manually pressurized and impregnated into the bone of the distal femur. The trochlear component was then placed manually into the prepared site with the correct orientation. This was manually positioned. Excess cement was removed. The trocar component was ensured to be in the appropriate position orientation and then held manually for the entire curing process of the cement, approximately 15 minutes. After the cement had finally cured, the knee was taken through range of motion. The patella was tracking without any notable tilt. There was no significant tension onto the lateral soft tissues. The capsule was then reapproximated with a No. 1 Vicryl. The medial retinaculum adjacent to patella was closed with a pants over vest type technique to reinforce the medial soft tissues. Deep tissues were then reapproximated with 0 Vicryl and 2-0 Vicryl. The skin was closed with a running 3-0 Monocryl in a subcuticular fashion. This incision as well as the lateral thigh incision was reinforced with skin glue. A Mepilex silver dressing was applied to each incision along with a [id number] GABRIEL wrap. A CryoCuff was applied. Dee was transferred to the hospital bed without difficulty an suffering no apparent complication. Dee has a good prognosis. Physical therapy will start today and without restrictions, weight-bearing as tolerated. Aspirin 81mg BID will be used for DVT prophylaxis. Date of Procedure: 08/14/25
[2025-08-14] MEDS: Tranexamic Acid 650 MG TAB 1300 MG PO (14:04)
--- NOTE | 2025-08-14 15:03 | PT.INIE ---
PT Notes Visit Reasons: Loosening of Lt knee prosthetic joint+IT band syn Physical Therapy Day Surgery Initial Evaluation Date: 08/14/2025 Referring Doctor: Jyoti Powell NP/Dr Andrade PT Orders: PT CONSULT: Eval and treat Precautions: standard, Knee flex to only 90 degrees to prevent strain on IT band, WBAT LLE Patient Profile/Admitting Diagnosis: 45-year-old female, who had a L TK revision on the trochlear component with an IT band release. 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 Pt has 5 [address] [employer] with one rail on right side. And 10-13 steps to reach the second floor, with a rail on the left side. Pt shower walking poles in the bathroom. Equipment Owned/DME: FWW, single point cane Subjective: Pt reported feeling well. Objective: General Observation: Pt lying in bed when PT arrived. Mental Status: Pt alert and oriented person, place, time, purpose. Informed Consent/Education: Patient instructed in purpose of PT consult. Packet containing exercise TKA protocol has been given to patient. Education and training on initial set of exercises that can be done at home have been completed with patient. Only LLE Quad contractions: 1x5 Glute contractions: 1x5 Ankle pumps: 1x5 Heel slides: 1x5 Seated Marches: 1x5 Seated Leg extensions: 1x5 Pain: 1/10 in left knee, specifically lateral side of left knee, no pain on medial side of left knee. ROM: Right Upper Extremity: WFL Left Upper Extremity: WFL Right Lower Extremity: WFL Left Lower Extremity: Knee Extension: -4 Degrees Knee Flexion: 90 Degrees. Not assessed further to prevent straining IT band Strength: Right Upper Extremity: WFL Left Upper Extremity: WFL Right Lower Extremity: WFL Left Lower Extremity: Grossly 4-/5, Quad Set Good, Sensation: Intact Bed Mobility/Transfers: Rolling L/R: Independent Supine to sit Independent Sit to stand Supervision w/FWW Stand to sit independent w/FWW Bed to chair: Supervision w/FWW Gait: Ambulation: Pt ambulated 130 feet w/FWW supervision. With a reciprocal pattern. Carmen decreased, step length decreased, step height normal. Diminished knee flexion left swing phase Stairs: Two six-inch steps and three four-inch steps supervised with railings on both sides. Step one two pattern. Pt needed cueing for proper foot placement/stepping sequence. Pt needed cueing to help with heel clearance with descending stairs. Balance: Static Sitting: Normal Dynamic Sitting: Normal Static Standing: Good Dynamic Standing: Good with 1UE Special Tests: Mobility Limitations Standardized Measure [facility] 6 clicks Basic Mobility Inpatient Short Form: Raw Score: 22 CMS Score: 20.91% deficit PT provided verbal and tactile cueing with demonstration for all exercises. Assessment: Pt was able to perform all HEP with verbal and tactile cueing from PT to promote proper motor recruitment. Pt ambulated with FWW and supervision with a reciprocal walking pattern. While ambulating the stairs pt needed verbal and tactile cueing form proper foot placement and foot sequence. Pt decreased: strength, standing balance and ROM has resulted in a decreased activity tolerance and increased time for ADLs. Pt would benefit from skilled physical therapy after 2 weeks of HEP. Prognosis is good Patient presents with clinical signs and symptoms consistent with current/admitting diagnoses that have resulted to mobility limitations, gait instability, generalized weakness, and impairment of motor control as demonstrated by the following impairment level findings: 1. Decreased strength to left Quads, hamstring, adductor/abductors, and glutes 2. Impaired standing/dynamic balance 3. Limitation of joint range of motion in left knee 4. impaired functional activity tolerance Impairments are contributing to the following functional limitations: 1. Inability to safely ambulate without assistive device 2. Increase completion time for mobility ADL performance 3. Increased fall risk 4. difficulty performing stairs safely independently Patient is assessed as a Low complexity based on the following: History: 45-year-old female with impairment level findings, functional limitations, and past medical history as indicated above Examination: Demonstrable impairment in strength, balance, and mobility level with underlying impairments and functional limitations as documented above Presentation: evolving Decision Making: Low Goals: N/A. PT evaluation and 1-2 treatment sessions only for functional mobility training using recommended AD and for HEP instruction. Plan of Care/Treatment Plan: N/A. PT evaluation and 1-2 treatment session only for functional mobility training using recommended AD and for HEP instruction. DISCHARGE RECOMMENDATIONS: Home with outpatient PT as scheduled TREATMENT CODE/TIME: 36775/2:36pm-2:56pm, 20 total minutes Thank you for the opportunity to participate in the care of this patient. Written by: Zion Guillory DPTS Supervised by: Katelin Greene, PT [id number]
== END 2025-08-14 15:20 | disposition home or self-care (01) ==
LOC: SUR 08:32
PROVIDERS: Visit Provider Student in an Organized Health Care Education/Training Program
PROC: (CPT 27487; principal; 2025-08-14 10:45)
DX: T84.033A Mechanical loosening of internal left knee prosthetic joint, initial encounter (principal); M76.32 Iliotibial band syndrome, left leg; G89.18 Other acute postprocedural pain
CPT/HCPCS: 27486; 27305; 64447; 97161; C1776; J0166; J0665; J0666; J0690; J1100; J1885; J2003; J2250; J2401; J2405; J2704; J2795; J3010

== ENCOUNTER 2025-08-27 11:58 | Outpatient (CLI) | payer OTHER, SELFPAY ==
--- NOTE | 2025-08-27 10:15 | DI.RAD_ITS ---
Exam(s) XR KNEE LT 3V AP,LAT,JOSE DANIEL EXAM: XR KNEE LT 3V AP,LAT,JOSE DANIEL CLINICAL HISTORY: PF REVISION. TECHNIQUE: 2D digital imaging was performed. Three images were obtained. Merchant's, AP and lateral views were obtained. COMPARISON: CR XR KNEE LT 3V AP,LAT,JOSE DANIEL from 05/11/[address] LOWER EXTREMITY RT WO from 05/30/[address] LOWER EXTREMITY LT WO from 05/30/2025 MR MR LOWER JOINT LT WO from 07/13/2025 FINDINGS: BONES: There are post operative changes of a patellofemoral prosthesis revision present. No fracture or dislocation. JOINTS: The orthopedic hardware is in good position. No evidence of hardware loosening. There is a small joint effusion. SOFT TISSUE: Normal. IMPRESSION: Status post patellofemoral prosthesis revision. DATA REPOSITORY: RADIATION DOSE DELIVERED:
== END 2025-08-27 11:59 | disposition home or self-care (01) ==
LOC: DIORS 11:58
PROVIDERS: Visit Provider Student in an Organized Health Care Education/Training Program
DX: T84.033A Mechanical loosening of internal left knee prosthetic joint, initial encounter; Z96.652 Presence of left artificial knee joint
CPT/HCPCS: 73562